=== PATIENT | female | born 1935 | race Caucasian/White ===

== ENCOUNTER → 2017-05-07 | Outpatient (CLI) | payer OTHER, MEDICARE ==
[~2017-05-07] MED LIST: ACIDOPHILUS1 EAC3 PO; ALBUTEROL2.5 MG/0.5 INH; AUGMENTIN 875875 MG PO; CALCIUM 600 +1 EAC1 PO; FOLIC ACID1 MG PO; LEVAQUIN 500 M500 M2 PO; METHOTREXATE 22.5 MG; PREDNISONE 10 M10 MG PO; PREDNISONE 5 MG5 M1 PO; PRILOSEC20 MG PO; PROTONIX40 M1 PO; SIMVASTATIN40 MG PO; TRAMADOL 50 MG50 MG PO; ULTRAM 50MG TAB50 MG PO
== END ==
LOC: RAD 08:49
DX: J84.9 Interstitial pulmonary disease, unspecified (principal); J44.9 Chronic obstructive pulmonary disease, unspecified; R06.00 Dyspnea, unspecified

== ENCOUNTER 2017-09-25 12:43 | Emergency (ER) | payer OTHER, MEDICARE ==
[~2017-09-25] VITALS: Ht 154.9 cm; Wt 48.1 kg
[2017-09-25] MEDS ORDERED: NEURONTIN600 MG PO (13:19)
[2017-09-25] MEDS ORDERED: OXYCONTIN10 M1 PO (13:20)
[2017-09-25] MEDS ORDERED: IRON325 PO (13:20)
== END 2017-09-25 14:02 | disposition home or self-care (01) ==
LOC: ER 12:43
DX: H11.31 Conjunctival hemorrhage, right eye (principal); J44.9 Chronic obstructive pulmonary disease, unspecified; M19.90 Unspecified osteoarthritis, unspecified site; F10.99 Alcohol use, unspecified with unspecified alcohol-induced disorder; Z88.2 Allergy status to sulfonamides; Z91.013 Allergy to seafood

== ENCOUNTER 2017-11-25 12:24 | Inpatient (IN) | payer OTHER, MEDICARE ==
[~2017-11-25] VITALS: Ht 160 cm; Wt 59.0 kg
--- NOTE | ~2017-11-25 | EKG ---
[place] [address] [facility] [place] [address] ELECTROCARDIOGRAM REPORT Name: TORREY GARAY Room #: 404-P ADM IN M.R.#: [id number] Admission: 11/25/17 Attend Phys: Adrián Mason MD Discharge: Date of : 35 Report #: [id number] THIS REPORT FOR: //name// [facility] ED Test Date: 2017-11-25 Test Time: 12:36:24 Pat Name: TORREY GARAY Department: Room: [facility] Gender: F Sequencing Machine Operator: HAFSA : 1935 Requested By: Bettina Hart Order Number: [id number] MD: Freeman Jason Measurements Intervals Wallace Rate: 116 P: -1 MD: 137 QRS: -73 QRSD: 92 T: 81 QT: 332 QTc: 462 Interpretive Statements Sinus tachycardia Multiple premature complexes, supraven Left anterior fascicular block Compared to ECG 01/03/2016 19:28:51 Ventricular premature complex(es) no longer present Electronically Signed On 11-25-2017 18:28:57 LOCK TECHNICIAN by Freeman Jason [email or web address] <ELECTRONICALLY SIGNED> By: Freeman Jason MD, [facility] 11/25/17 1828 1236 1236 Freeman Jason MD, [facility] /EPI
--- NOTE | ~2017-11-25 | H ---
[facility] [place] [address] HISTORY AND PHYSICAL Name: TORREY GARAY Room #: 404-P ADM IN M.R.#: [id number] Admission: 11/25/17 Attend Phys: Adrián Mason MD Discharge: Date of : 35 Report #: [id number] THIS REPORT FOR: //name// CC: Hebert Mason DATE OF SERVICE: 11/25/2017 CHIEF COMPLAINT: Weakness and confusion. HISTORY OF PRESENT ILLNESS: The patient is an 82-year-old female who was sent to the emergency room from her assisted living facility for reports of confusion and hypoxia. Apparently at her facility each morning, she is to hit a signal button to the central office to let them know that she is doing okay. She did not do that this morning and the staff went to check on her and found her confused and hypoxic without her oxygen in her apartment. She said she could not remember if she had taken her medicines or had breakfast. At that point, the staff called EMS and she was brought to the emergency room. The main issues were that of hypoxia that resolved with the placement of her home oxygen and leukocytosis. She really cannot provide any other specific reports or history beyond that. PAST MEDICAL HISTORY: COPD, chronic O2 and steroid dependent; rheumatoid arthritis; gout; interstitial lung disease. She has had a history of vertebral compression fractures in 2016. PAST SURGICAL HISTORY: Tonsillectomy, vertebroplasty. FAMILY HISTORY: Noncontributory. SOCIAL HISTORY: A 29-ifih-lbfv smoking, but none currently. No alcohol use. ALLERGIES: SULFA. MEDICATIONS: Multivitamin, Zocor 40 mg, prednisone 10 mg, iron, apparently supplemental oxygen at 4 liters nasal cannula, gabapentin 600 mg t.i.d., oxycodone 10 mg q. 6 hours p.r.n. pain. REVIEW OF SYSTEMS: She denies headache, fever, chills, shortness of breath, productive cough, nausea, vomiting or diarrhea. OBJECTIVE: VITAL SIGNS: Temperature 36.6, pulse 114, respirations 20, blood pressure 154/83, O2 sat on nasal cannula oxygen. GENERAL: She is awake and alert, resting in bed in no distress. HEAD AND NECK: Unremarkable. She has dry mucous membranes. [address] [address] HISTORY AND PHYSICAL Name: TORREY GARAY Room #: [facility] IN M.R.#: [id number] Admission: 11/25/17 Attend Phys: Adrián Mason MD Discharge: Date of : 35 Report #: [id number] LUNGS: Distant, but clear. No wheezing. HEART: Tachycardic, regular rhythm, no murmur. ABDOMEN: Soft, normoactive bowel sounds. EXTREMITIES: No cyanosis, clubbing or edema. NEUROLOGIC: She moves all extremities, global strength about 3/5 throughout. LABORATORY DATA: Influenza is negative. Chest x-ray did not show an infiltrate. Blood, sputum and urine cultures are pending. BUN was 25. White blood cell count 19, no bands, about 80% segs. ASSESSMENT: 1. Leukocytosis. 2. Chronic obstructive pulmonary disease exacerbation. 3. Prerenal azotemia with mild dehydration. 4. Rheumatoid arthritis. 5. Chronic pain syndrome with use of oxycodone. PLAN: Cultures have been obtained in the ER and empiric antibiotics have been ordered. I will resume her usual home medications, Lovenox DVT prophylaxis and nebulized treatments. Await further studies. <ELECTRONICALLY SIGNED> By: Adrián Mason MD 11/26/17 1017 1538 1736 Adirán Mason MD /nt
[~2017-11-25 12:24] MED LIST changes: +IRON325 PO; +NEURONTIN600 MG PO; +OXYCONTIN10 M1 PO
[2017-11-25 12:26] VITALS: BP 155/93
[2017-11-25 12:59] LABS: HEMATOCRIT 39.7 % (37.0-47.0); HEMOGLOBIN 12.7 gm/dL (12.0-15.0); MCH 30.2 pg (26.0-34.0); MCHC 31.9 g/dL (28.0-37.0); MCV 94.8 fL (80.0-100.0); PLATELET COUNT 388 thou/uL (150-400); RBC 4.18 mil/uL (4.20-5.00); RDW 14.7 % (10.5-14.5); WBC 19.3 thou/uL (4.0-11.0)
[2017-11-25 13:08] LABS: CALCIUM 9.1 mg/dL (8.5-10.1); CREATININE 0.8 mg/dL (0.6-1.0); POTASSIUM 3.5 mmol/L (3.5-5.1)
[2017-11-25 13:12] LABS: BE(vivo) 5.8 mmol/L (-2 to +3); HCO3 27.2 mmol/L (22.0-26.0); PCO2 29.5 mmHg (35.0-45.0); PO2 60.8 mmHg (80.0-100.0); pH 7.583 (7.360-7.450); sO2 94.7 % (92.0-98.0)
[2017-11-25 13:32] LABS: ABSOLUTE NEUTROPHILS 15.8 thou/uL (1.4-8.2); PLATELET ESTIMATE NORMAL
[2017-11-25 13:33] LABS: POLYCHROMASIA SLIGHT
[2017-11-25 13:42] LABS: URINE BILIRUBIN 2+ (Negative); URINE BLOOD 1+ (Negative); URINE CLARITY CLEAR; URINE COLOR YELLOW; URINE GLUCOSE-RANDOM* NEGATIVE (Negative); URINE KETONES 2+ (Negative); URINE LEUKOCYTES NEGATIVE (Negative); URINE NITRITE NEGATIVE (Negative); URINE PROTEIN (DIPSTICK) 3+ (Negative); URINE SPECIFIC GRAVITY >= 1.030 (1.005-1.035)
[2017-11-25 13:45] LABS: ICTOTEST (BILI CONFIRMATORY) Negative (Negative)
[2017-11-25 13:51] LABS: AMORPHOUS URATES Many /LPF (None Seen); BACTERIA 1-9 Few /HPF (None Seen); CASTS None Seen /LPF (None Seen); SQUAMOUS 0-3 Few /LPF (0-3); URINE RBC 3-10 Few /HPF (0-2); URINE WBC 0-5 Rare /HPF (0-5)
[2017-11-25 14:35] VITALS: BP 154/83
[2017-11-25 14:39] VITALS: BP 154/83
[2017-11-25 16:32] VITALS: BP 168/79
[2017-11-25 19:38] VITALS: BP 142/74
[2017-11-26] VITALS: BP 147/73
[2017-11-26 03:45] VITALS: BP 144/68
[2017-11-26 05:47] LABS: HEMATOCRIT 33.2 % (37.0-47.0); HEMOGLOBIN 10.9 gm/dL (12.0-15.0); MCH 30.1 pg (26.0-34.0); MCHC 32.8 g/dL (28.0-37.0); MCV 91.7 fL (80.0-100.0); RBC 3.62 mil/uL (4.20-5.00); RDW 14.4 % (10.5-14.5); WBC 17.1 thou/uL (4.0-11.0)
[2017-11-26 06:14] LABS: CREATININE 0.5 mg/dL (0.6-1.0)
[2017-11-26 06:18] LABS: POTASSIUM 2.6 mmol/L (3.5-5.1)
[2017-11-26 08:43] VITALS: BP 143/84
[2017-11-26 16:34] VITALS: BP 108/69
[2017-11-26 20:00] VITALS: BP 96/60
[2017-11-27 03:52] LABS: HEMATOCRIT 32.1 % (37.0-47.0); HEMOGLOBIN 10.4 gm/dL (12.0-15.0); MCHC 32.5 g/dL (28.0-37.0); MCV 92.1 fL (80.0-100.0); RBC 3.48 mil/uL (4.20-5.00); RDW 14.4 % (10.5-14.5); WBC 14.5 thou/uL (4.0-11.0)
[2017-11-27 04:00] VITALS: BP 100/61
[2017-11-27 04:08] LABS: CALCIUM 7.6 mg/dL (8.5-10.1); CREATININE 0.6 mg/dL (0.6-1.0); POTASSIUM 3.8 mmol/L (3.5-5.1)
[2017-11-27 07:28] VITALS: BP 96/50
[2017-11-27 16:03] VITALS: BP 107/66
[2017-11-27 20:17] VITALS: BP 115/60
[2017-11-28 04:05] VITALS: BP 120/69
[2017-11-28 04:45] LABS: HEMATOCRIT 32.5 % (37.0-47.0); HEMOGLOBIN 10.6 gm/dL (12.0-15.0); MCH 29.8 pg (26.0-34.0); MCHC 32.5 g/dL (28.0-37.0); MCV 91.6 fL (80.0-100.0); RBC 3.55 mil/uL (4.20-5.00); RDW 14.6 % (10.5-14.5); WBC 16.4 thou/uL (4.0-11.0)
[2017-11-28 08:37] VITALS: BP 111/56
[2017-11-28 16:21] VITALS: BP 112/68
[2017-11-28 19:48] VITALS: BP 117/61
[2017-11-29 04:05] VITALS: BP 116/65
[2017-11-29 08:27] VITALS: BP 112/54
[2017-11-29 15:47] VITALS: BP 105/59
[2017-11-29 19:34] VITALS: BP 101/57
[2017-11-30 04:12] VITALS: BP 114/62
[2017-11-30 09:41] VITALS: BP 97/53
[2017-11-30] MEDS ORDERED: LEVAQUIN 500 M500 M1 PO ×2 (11:49)
[2017-11-30] MEDS ORDERED: PREDNISONE 10 M10 MG PO ×2 (11:50)
[2017-11-30] MEDS ORDERED: OXYCODONE HCL 55 MG PO ×2 (11:54)
[2017-11-30 12:09] VITALS: BP 97/53
[2017-11-30 15:37] VITALS: BP 118/54
== END 2017-11-30 18:24 | disposition home or self-care (01) | DRG 871 ==
LOC: ER 12:24 → 4N 14:11 → EROBS 14:11 → 4N 14:32
PROVIDERS: Emergency Medicine; Internal Medicine Geriatric Medicine
DX: A41.9 Sepsis, unspecified organism (principal); J18.9 Pneumonia, unspecified organism; G93.41 Metabolic encephalopathy; J44.1 Chronic obstructive pulmonary disease with (acute) exacerbation; J44.0 Chronic obstructive pulmonary disease with (acute) lower respiratory infection; M06.9 Rheumatoid arthritis, unspecified; G89.4 Chronic pain syndrome; M10.9 Gout, unspecified; Z87.311 Personal history of (healed) other pathological fracture; Z90.49 Acquired absence of other specified parts of digestive tract; Z79.899 Other long term (current) drug therapy; Z88.2 Allergy status to sulfonamides; Z91.013 Allergy to seafood
CPT/HCPCS: 10790

== ENCOUNTER 2017-12-05 08:31 | Inpatient (IN) | payer OTHER, MEDICARE ==
[~2017-12-05] VITALS: Ht 152.4 cm; Wt 47.6 kg
--- NOTE | ~2017-12-05 | P ---
[facility] [place] [address] PROCEDURE REPORT Name: TORREY GARAY Room #: 424-P ADM IN M.R.#: [id number] Admission: 12/05/17 Attend Phys: Adrián Mason MD Discharge: Date of : 35 Report #: [id number] THIS REPORT FOR: //name// CC: Reinaldo Mason MD DATE OF SERVICE: 12/09/2017 PROCEDURE: EGD with biopsies. The patient of Dr. Adrián Mason. Indication for the EGD was to evaluate her weight loss and anemia. Informed consent for this procedure was obtained prior to the administration of any medication. The risks of the procedure which include bleeding, perforation, infection, complications of sedation and the possibility I could miss something have been explained to the patient and she has indicated her consent by signing. DESCRIPTION OF PROCEDURE: Propofol 350 mg and ketamine 50 mg was slowly titrated before and during this procedure and the colonoscopy that followed it. The [employer] upper videoscope was introduced through the upper esophageal sphincter and advanced under direct visualization to the descending duodenum. Findings are noted on withdrawal of the scope. The duodenal mucosa appears normal throughout its entirety. Pylorus, normal mucosa. Antrum, normal mucosa. There is some coffee-ground material down the antrum of the stomach. I am not certain of the source because I could not identify one. Body, normal mucosa. Cardia and fundus, normal mucosa. Retroflexed view did not reveal any abnormalities. The scope was withdrawn into the esophagus. The esophageal mucosa appears normal throughout its entirety and the Z-line is appropriately located at the top the gastric folds and appears normal. The scope was advanced then into the stomach again. Biopsies were obtained x 2 for histopathology to exclude H. pylori infection primarily, but any other abnormalities that are noted would be appreciated. The scope was withdrawn. The patient was turned for colonoscopy. IMPRESSION: 1. Normal esophagogastroduodenoscopy to descending duodenum. Biopsies obtained for Helicobacter pylori evaluation. 2. A few coffee grounds were noted in the stomach. Etiology is uncertain. [facility] [address] [place] [address] PROCEDURE REPORT Name: GARAYTORREY Room #: 424-P [facility] IN M.R.#: [id number] Admission: 12/05/17 Attend Phys: Adrián Mason MD Discharge: Date of : 35 Report #: [id number] Thank you very much once again for allowing me to participate in her care. We will await the biopsy results and proceed with colonoscopy at this time. <ELECTRONICALLY SIGNED> By: Lucia Carpenter DO 12/10/17 1117 1631 [id number] Lucia Carpenter DO /nt
--- NOTE | ~2017-12-05 | S ---
[facility] [address] [place] [address] SURGICAL PATH RPT PROCEDURE Name: JEWELS WISE Aixa Room #: 424-P ADM IN M.R.#: [id number] Admission: 12/05/17 Date of : 35 Discharge: Report #: [id number] Path Case #: [id number] PATHOLOGY REPORT COLLECTION DATE: 12/09/2017 RECEIVED DATE: 12/09/2017 SUBMITTING PHYS: Dr. Lucia Carpenter OTHER PHYS: Dr. Adrián Gore ADDENDUM REPORT (Order Date: 12/11/2017 09:49) ADDENDUM COMMENT: A properly controlled immunohistochemical stain was performed. H. pylori (block A1) - Negative for organisms The final diagnosis remains unchanged. (CLW:cj; 12/11/2017) Professional services performed by [facility] at [facility] [address] [place] [address] Technical services performed by [facility] at [address] [place] [address], [address] [place] [address]. ELECTRONICALLY SIGNED BY: Humaira Yen M.D. DATE/TIME:12/11/2017 09:52 SPECIMEN(S) RECEIVED: A.Duodenal bulb B.Proximal descending polyp C.Ascending collitis * * * * * * * * * * * * FINAL DIAGNOSIS: A. Tissue submitted as, "duodenal bulb", biopsy: - Gastric mucosa with mild reactive changes and mild chronic inflammation; no small bowel mucosa present. (See comment). B. "Proximal descending polyp", biopsy: - Tubular adenoma; no high grade dysplasia. C. "Ascending colitis", biopsy: - Colonic mucosa with mild reactive / hyperplastic changes and focal active colitis; no dysplasia is seen. (See comment). COMMENT: Within specimen A, the tissue submitted is entirely gastric mucosa. Clinical and endoscopic correlation is required to exclude the [facility] [address] [place] [address] SURGICAL PATH RPT PROCEDURE Name: DAISHA WISELEOBARDO Kruse Room #: 424-P ADM IN ..#: [id number] Admission: 12/05/17 Date of : 35 Discharge: Report #: [id number] Path Case #: [id number] possibility of gastric metaplasia of the duodenal bulb. An H. pylori stain is pending and will be reported as an addendum. Within specimen C, focal active colitis can be seen in resolving infectious-type colitis, incidentally with bowel preparation and quiescent chronic idiopathic inflammatory bowel disease. No increased chronic inflammation or chronic architectural changes are identified. Again, clinical and endoscopic correlation is required. (CLW:art; 12/10/2017) PATHOLOGIST: Humaira Yen M.D. REPORT ELECTRONICALLY SIGNED BY: Humaira Yen M.D. DATE/TIME: 12/10/2017 15:50 * * * * * * * * * * * * GROSS PATHOLOGY: A. Received in formalin labeled "Jewels Wise, BX duodenal bulb," is a segment of carrera soft tissue measuring 0.5 cm in maximum dimension. The specimen is submitted entirely in cassette A1. B. Received in formalin labeled "Jewels Wise, polyp at proximal descending colon," is a segment of carrera soft tissue measuring 0.4 cm in maximum dimension. The specimen is submitted entirely in cassette B1. C. Received in formalin labeled "Jewels Wise, ascending colitis," are 2 segments of carrera soft tissue measuring 0.6 x 0.2 x 0.2 cm in aggregate dimensions and measuring 0.3 cm each in maximum dimension. The specimen is submitted entirely in cassette C1. (TSD; 12/09/2017) CLINICAL HISTORY: Pre-OP DX: Weight loss, colitis Post-OP DX: Gastritis, colon polyp, diverticulosis, colitis INITIAL CPT CODE(S): A; 23888, 48301 B; 07411 C; 21159 Professional services performed by [facility] at [address], [place] [address] Technical services performed by [facility] at [address] [place] [address], [facility] [address] [address]. [facility] [address] [address] SURGICAL PATH RPT PROCEDURE Name: JEWELS WISE Aixa Room #: 424-P [facility] IN M.R.#: [id number] Admission: 12/05/17 Date of : 35 Discharge: Report #: [id number] Path Case #: [id number] [address] [place] [address] PHONE: [phone] DIRECTOR: Rd Silveira M.D. * * * END OF REPORT * * *
--- NOTE | ~2017-12-05 | P ---
[facility] [place] [address] PROCEDURE REPORT Name: TORREY GARAY Aixa Room #: 424-P [facility] IN M.R.#: [id number] Admission: 12/05/17 Attend Phys: Adrián Mason MD Discharge: Date of : 35 Report #: [id number] THIS REPORT FOR: //name// CC: Reinaldo Mason DATE OF SERVICE: 12/09/2017 PROCEDURE: Colonoscopy with biopsy. INDICATIONS FOR PROCEDURE: Evaluate right-sided colitis, weight loss and anemia. Informed consent for this procedure was obtained prior to the administration of any medication. The risks of the procedure which include bleeding, perforation, infection, complications of sedation and the possibility I could miss something have been explained to the patient and she has indicated her consent by signing. DESCRIPTION OF PROCEDURE: Propofol 350 mg and ketamine 50 mg were slowly titrated before and during this procedure and the EGD that preceded it. Digital rectal exam did not reveal any abnormalities. Then, the Alegríainon colonoscope was introduced through the anal sphincter and advanced under direct visualization with great difficulty at times because of the loopy colon to the patient's terminal ileum. Findings were noted on withdrawal of the scope. The terminal ileal mucosa that was visualized appeared normal. Cecum, normal mucosa. Ascending colon, normal mucosa. Biopsies were obtained randomly from the ascending colon because CT scan suggested that this was an area of active colitis with thickened whitlock. Hepatic flexure, normal mucosa. Transverse colon, normal mucosa. Splenic flexure, normal mucosa. Proximal descending colon, there was a 4-mm sessile polyp removed in one piece with the regular biopsy forceps and sent to pathology lab. Good hemostasis was noted after that polypectomy. The remaining descending colonic mucosa appears normal, except for a few uncomplicated diverticula. Sigmoid colon, scattered uncomplicated diverticula are noted. Rectum, normal mucosa. Retroflexed view did not reveal any abnormalities. The scope was withdrawn. The patient went to the recovery room in stable condition. She tolerated the procedure well. IMPRESSION: 1. Uncomplicated left-sided diverticulosis. 2. A 4-mm polyp removed from the proximal descending colon, as above. 3. Random biopsies of the right colon because of colitis seen on CT scan. RECOMMENDATIONS: To await the biopsy results. We will start her on her regular diet and her previous medications. We did collect stools for culture and sensitivity, ova and parasites, C. difficile and WBCs during this procedure. [address] [address] PROCEDURE REPORT Name: GARAYTORREY Room #: 424-P [facility] IN .#: [id number] Admission: 12/05/17 Attend Phys: Adrián Mason MD Discharge: Date of : 35 Report #: [id number] Thank you very much once again for allowing me to participate in her care, Dr. Gore and Dr. Mason. <ELECTRONICALLY SIGNED> By: Lucia Carpenter DO 12/10/17 1117 1631 2313 Lucia Carpenter DO /nt
--- NOTE | ~2017-12-05 | EKG ---
[place] [address] [facility] [employer] [place] [address] ELECTROCARDIOGRAM REPORT Name: TORREY GARAY Room #: 424-P [facility] IN M.R.#: [id number] Admission: 12/05/17 Attend Phys: Adrián Mason MD Discharge: Date of : 35 Report #: [id number] THIS REPORT FOR: //name// [facility] ED Test Date: 2017-12-05 Test Time: 10:19:36 Pat Name: TORREY GARAY Department: Room: [facility] Gender: F Staff Nurse Anesthetist: JACQUI : 1935 Requested By: Paige Wooten Order Number: [id number] MD: Freeman Jason Measurements Intervals [place] Rate: 91 P: 5 IL: 148 QRS: -61 QRSD: 92 T: 16 QT: 366 QTc: 451 Interpretive Statements Sinus rhythm ventricular premature complexes Left atrial enlargement Left anterior fascicular block Poor R wave progression Compared to ECG 11/25/2017 12:36:24 Ventricular premature complex(es) now present Electronically Signed On 12-07-2017 7:27:59 WOOD TILE INSTALLER by Freeman Jason [email or web address] <ELECTRONICALLY SIGNED> By: Freeman Jason MD, FACC 12/07/17 0727 1019 1019 Freeman Jason MD, [facility] /EPI
--- NOTE | ~2017-12-05 | H ---
[facility] [place] [address] HISTORY AND PHYSICAL Name: TORREY GARAY Aixa Room #: 424-P ADM IN M.R.#: [id number] Admission: 12/05/17 Attend Phys: Adrián Mason MD Discharge: Date of : 35 Report #: [id number] THIS REPORT FOR: //name// CC: Hebert Mason DATE OF SERVICE: 12/05/2017 CHIEF COMPLAINT: Weakness. HISTORY OF PRESENT ILLNESS: The patient is an 82-year-old female with a history of COPD and rheumatoid arthritis, is readmitted to the hospital through the Emergency Room with weakness. She was hospitalized about a week ago with general symptoms, very similar, but at that time had an unexplained leukocytosis. White count was 19,000. Chest x-ray, blood and urine cultures were unremarkable. She was treated with empiric antibiotics and then discharged home. Recommendations at that time by myself were for her to transfer to intermediate for rehabilitation, which she declined. However, family brought her back to the ER yesterday with general decline in her overall function, just global weakness, tending to sleep most of the day, not getting out of bed or performing regular self cares. They were concerned and brought her back to the Emergency Room. She really has no other specific complaints. Her about 3 months ago and family noted she seems depressed since then. PAST MEDICAL HISTORY: Rheumatoid arthritis, COPD, O2 and steroid dependent. She has had a thoracic vertebral compression fractures. PAST SURGICAL HISTORY: Noncontributory. FAMILY HISTORY: Unknown. SOCIAL HISTORY: She is recently . She is living alone. She has a supportive daughter in town. No chronic alcohol or tobacco use currently, but a prior 01-yuvd-yztu history of smoking. ALLERGIES: SULFA. MEDICATIONS: Oxycodone, gabapentin, prednisone 10 mg, leflunomide. REVIEW OF SYSTEMS: She complains of neck pain and stiffness. No headache, chest pain, shortness of breath, abdominal pain, nausea, vomiting, diarrhea, constipation, dysuria, syncope. OBJECTIVE: VITAL SIGNS: Temperature 36.7, pulse 105, respirations 18, blood pressure 139/71. [facility] [address] [place] [address] HISTORY AND PHYSICAL Name: TORREY GARAY Room #: 424-P [facility] IN [facility]#: [id number] Admission: 12/05/17 Attend Phys: Adrián Mason MD Discharge: Date of : 35 Report #: [id number] GENERAL: She is awake and alert, in no distress. HEAD AND NECK: Unremarkable. She has some stiffness and pain on the right side of her neck. LUNGS: Distant but clear. No wheezing. HEART: Regular, no murmur. ABDOMEN: Soft, normoactive bowel sounds. EXTREMITIES: No cyanosis, clubbing or edema. She has some joint deformities in the metacarpophalangeal bilateral. NEUROLOGIC: She is alert and oriented. She knows place, remembered my name. Global strength about 3/5 throughout. LABORATORY DATA: She had a urinalysis with white blood cells and few bacteria. White count is 13, with a mild left shift. Potassium was 3.2. Troponin negative. TSH normal. Urine culture is pending. ASSESSMENT: 1. Persistent leukocytosis. 2. Rheumatoid arthritis. 3. Chronic obstructive pulmonary disease, O2 and steroid dependent. 4. Senile debility. 5. Depression after the loss of her . PLAN: We will investigate the leukocytosis again, but as of last admission, there was no definitive source, and her count has slowly dropped really with minimal treatment. Ultimately, the plan will be for her to admit to intermediate for rehabilitation and ADL care and see how she does with consideration to what the long-term options for her. She is complaining of pain in the neck and given the rheumatoid arthritis and history of vertebral compression fractures, a CT will be ordered. <ELECTRONICALLY SIGNED> By: Adrián Mason MD 12/07/17 1255 0854 0925 Adrián Mason MD /nt
[~2017-12-05 08:31] MED LIST changes: +LEVAQUIN 500 M500 M1 PO; +OXYCODONE HCL 55 MG PO
[2017-12-05 08:32] VITALS: BP 126/44
[2017-12-05 09:06] LABS: ANION GAP 4 mmol/L (7-16); BUN 12 mg/dL (7-18); CHLORIDE 99 mmol/L (98-107); CO2 39 mmol/L (21-32); CREATININE 0.7 mg/dL (0.6-1.0); GLUCOSE 118 mg/dL (74-106); POTASSIUM 3.2 mmol/L (3.5-5.1); SODIUM 142 mmol/L (136-145)
[2017-12-05 09:10] LABS: ABSOLUTE NEUTROPHILS 11.5 thou/uL (1.4-8.2); BASOPHILS 0.9 % (0.0-2.0); EOSINOPHILS 1.3 % (0.0-3.0); HEMATOCRIT 31.9 % (37.0-47.0); HEMOGLOBIN 10.4 gm/dL (12.0-15.0); LYMPHOCYTES 6.2 % (24.0-44.0); MCH 29.6 pg (26.0-34.0); MCHC 32.6 g/dL (28.0-37.0); MCV 90.9 fL (80.0-100.0); MONOCYTES 6.7 % (1.0-8.0); PLATELET COUNT 283 thou/uL (150-400); POLYS 84.9 % (36.0-66.0); RBC 3.51 mil/uL (4.20-5.00); RDW 14.7 % (10.5-14.5); WBC 13.6 thou/uL (4.0-11.0)
[2017-12-05 09:15] LABS: TROPONIN-I < 0.04 ng/mL (<0.06)
[2017-12-05 10:53] LABS: URINE BILIRUBIN NEGATIVE (Negative); URINE BLOOD NEGATIVE (Negative); URINE CLARITY CLEAR; URINE COLOR YELLOW; URINE GLUCOSE-RANDOM* NEGATIVE (Negative); URINE KETONES NEGATIVE (Negative); URINE LEUKOCYTES-REFLEX NEGATIVE (Negative); URINE NITRITE-REFLEX NEGATIVE (Negative); URINE PROTEIN (DIPSTICK) 1+ (Negative); URINE SPECIFIC GRAVITY >= 1.030 (1.005-1.035); URINE UROBILINOGEN 0.2 E.U./dl (0.2-1.0)
[2017-12-05 11:11] LABS: CASTS None Seen /LPF (None Seen); CRYSTALS None Seen /LPF (None Seen); SQUAMOUS 4-10 Moderate /LPF (0-3)
[2017-12-05 11:12] LABS: BACTERIA-REFLEX 1-9 Few /HPF (None Seen); URINE RBC 0-2 Rare /HPF (0-2); URINE WBC-REFLEX 6-15 Few /HPF (0-5)
[2017-12-05 12:16] VITALS: BP 100/70
[2017-12-05 12:39] VITALS: BP 94/58
[2017-12-05 19:07] VITALS: BP 111/64
[2017-12-06 03:50] VITALS: BP 146/76
[2017-12-06 07:40] VITALS: BP 139/71
[2017-12-06 15:16] VITALS: BP 95/60
[2017-12-06 19:15] VITALS: BP 132/85
[2017-12-06 20:25] LABS: ALBUMIN 1.9 g/dL (3.4-5.0); DIRECT BILIRUBIN 0.1 mg/dL (<0.1-0.3); TOTAL BILIRUBIN 0.3 mg/dL (<0.1-1.0); TOTAL PROTEIN 5.9 g/dL (6.4-8.2)
[2017-12-07 03:55] VITALS: BP 148/81
[2017-12-07 08:05] VITALS: BP 106/62
[2017-12-07 14:21] LABS: HEMATOCRIT 34.1 % (37.0-47.0); HEMOGLOBIN 10.9 gm/dL (12.0-15.0); MCH 29.2 pg (26.0-34.0); MCV 91.2 fL (80.0-100.0); RBC 3.74 mil/uL (4.20-5.00); RDW 15.4 % (10.5-14.5); WBC 17.5 thou/uL (4.0-11.0)
[2017-12-07 14:29] LABS: CALCIUM 8.8 mg/dL (8.5-10.1); CREATININE 0.8 mg/dL (0.6-1.0); POTASSIUM 4.1 mmol/L (3.5-5.1)
[2017-12-07 15:57] VITALS: BP 108/63
[2017-12-07 19:40] VITALS: BP 107/63
[2017-12-08 03:24] VITALS: BP 127/63
[2017-12-08 08:55] VITALS: BP 118/70
[2017-12-08 15:37] VITALS: BP 117/70
[2017-12-08 19:59] VITALS: BP 142/73
[2017-12-09 04:14] VITALS: BP 152/86
[2017-12-09 09:06] VITALS: BP 154/89
[2017-12-09 17:23] VITALS: BP 140/76
[2017-12-09 19:09] VITALS: BP 153/80
[2017-12-10 04:00] VITALS: BP 121/64
[2017-12-10 04:23] LABS: CALCIUM 8.7 mg/dL (8.5-10.1); CREATININE 0.5 mg/dL (0.6-1.0)
[2017-12-10 05:29] LABS: HEMATOCRIT 35.9 % (37.0-47.0); HEMOGLOBIN 11.7 gm/dL (12.0-15.0); MCH 29.4 pg (26.0-34.0); MCHC 32.7 g/dL (28.0-37.0); RBC 3.99 mil/uL (4.20-5.00); RDW 15.4 % (10.5-14.5); WBC 14.7 thou/uL (4.0-11.0)
[2017-12-10 07:32] VITALS: BP 150/81
[2017-12-10 16:05] VITALS: BP 139/72
[2017-12-10 20:00] VITALS: BP 140/82
[2017-12-11 04:25] VITALS: BP 132/71
[2017-12-11] MEDS ORDERED: ACETAMINOPHEN325 M1 PO ×2 (10:01)
[2017-12-11] MEDS ORDERED: ZOLOFT100 MG PO (10:01)
[2017-12-11] MEDS ORDERED: OXYCODONE HCL 55 MG PO ×2 (10:01)
[2017-12-11] MEDS ORDERED: MOBIC7.5 M1 PO ×2 (10:01)
[2017-12-11] MEDS ORDERED: DUONEB 2.5-0.5 M3 ML INH ×2 (10:01)
[2017-12-11] MEDS ORDERED: FLAGYL500 MG PO ×2 (16:13)
[2017-12-11] MEDS ORDERED: LEVAQUIN 500 M500 M1 PO ×2 (16:13)
[2017-12-11] MEDS ORDERED: ARAVA10 MG PO (16:13)
[2017-12-11 20:00] VITALS: BP 130/66
[2017-12-11 20:40] VITALS: BP 130/66
[2017-12-12 03:45] VITALS: BP 127/69
[2017-12-12 08:00] VITALS: BP 128/76
[2017-12-12] MEDS ORDERED: REMERON15 MG PO ×2 (08:45)
[2017-12-13 14:11] LABS: HISTOPLASMA MYCELIAL-ID Negative (Negative)
[2017-12-16 00:11] LABS: HISTOPLASMA MYCELIAL-CF Negative (Neg:<1:2)
[2017-12-17 07:15] LABS: T-SPOT.TB Negative
== END 2017-12-12 10:00 | DRG 377 ==
LOC: ER 08:31 → EROBS 11:54 → 4E 11:54
PROVIDERS: Emergency Medicine; Internal Medicine Geriatric Medicine; Specialist
PROC: 0DB98ZX Excision of Duodenum, Via Natural or Artificial Opening Endoscopic, Diagnostic (ICD-10-PCS; principal; 2017-12-05)
PROC: 0DBM8ZX Excision of Descending Colon, Via Natural or Artificial Opening Endoscopic, Diagnostic (ICD-10-PCS; principal; 2017-12-05)
PROC: 0DBK8ZX Excision of Ascending Colon, Via Natural or Artificial Opening Endoscopic, Diagnostic (ICD-10-PCS; principal; 2017-12-05)
DX: K57.31 Diverticulosis of large intestine without perforation or abscess with bleeding (principal); E43 Unspecified severe protein-calorie malnutrition; N39.0 Urinary tract infection, site not specified; K52.9 Noninfective gastroenteritis and colitis, unspecified; J84.10 Pulmonary fibrosis, unspecified; M06.9 Rheumatoid arthritis, unspecified; R53.81 Other malaise; R63.4 Abnormal weight loss; J44.9 Chronic obstructive pulmonary disease, unspecified; F32.9 Major depressive disorder, single episode, unspecified; G89.29 Other chronic pain; R40.0 Somnolence; D72.829 Elevated white blood cell count, unspecified; Z88.2 Allergy status to sulfonamides; Z91.013 Allergy to seafood; Z87.891 Personal history of nicotine dependence; Z68.20 Body mass index [BMI] 20.0-20.9, adult; Z99.81 Dependence on supplemental oxygen; Z79.51 Long term (current) use of inhaled steroids; Z79.899 Other long term (current) drug therapy
CPT/HCPCS: 10084; 62110; 62900

== ENCOUNTER 2017-12-18 14:25 | Inpatient (IN) | payer OTHER, MEDICARE ==
[~2017-12-18] VITALS: Ht 149.9 cm; Wt 40.4 kg
--- NOTE | ~2017-12-18 | EKG ---
[place] [address] [facility] [place] [address] ELECTROCARDIOGRAM REPORT Name: TORREY GARAY Room #: 419-P ADM IN M.R.#: [id number] Admission: 12/18/17 Attend Phys: Edna Xavier MD Discharge: Date of : 35 Report #: [id number] THIS REPORT FOR: //name// [facility] ED Test Date: 2017-12-18 Test Time: 14:41:50 Pat Name: TORREY GARAY Department: Room: [facility] Gender: F Gerontological Nurse Practitioner: ZO : 1935 Requested By: Madyson Church Order Number: [id number] MD: Rene Haynes Measurements Intervals [place] Rate: 116 P: 26 CA: 134 QRS: -71 QRSD: 88 T: 115 QT: 323 QTc: 449 Interpretive Statements Sinus arrhythmia Paired ventricular premature complexes Left atrial enlargement Left anterior fascicular block LVH with secondary repolarization abnormality Compared to ECG 12/05/2017 10:19:36 Left ventricular hypertrophy now present Electronically Signed On 12-19-2017 12:21:48 WHARF TALLY CLERK by Rene Haynes [email or web address] <ELECTRONICALLY SIGNED> By: Rene Haynes MD 12/19/17 1221 1441 1441 Rene Haynes MD /EPI
--- NOTE | ~2017-12-18 | H ---
[facility] [place] [address] HISTORY AND PHYSICAL Name: TORREY GARAY Aixa Room #: 419-P [facility] IN .R.#: [id number] Admission: 12/18/17 Attend Phys: Edna Freeman MD Discharge: Date of : 35 Report #: [id number] THIS REPORT FOR: //name// CC: Hebert Bao Edna Freeman DATE OF SERVICE: 12/19/2017 ATTENDING PHYSICIAN: Edna Freeman MD. CHIEF COMPLAINT: Left hip pain post fall. HISTORY OF PRESENT ILLNESS: The patient is an 82-year-old lady who presented to the Emergency Room after a fall in the restroom. The patient was at [facility] following her recent hospitalization for COPD exacerbation. The patient reported that she was feeling extremely weak and not able to move around. She was evaluated and noted to have orthostasis. X-ray of the left hip showed nondisplaced greater trochanteric fracture. The patient is now being admitted to the hospital and continues to have weakness. She was also noted to have a small scalp laceration, for which sutures have been placed. PAST MEDICAL HISTORY: Significant for history of severe COPD; recent colitis; rheumatoid arthritis; chronic respiratory failure, on oxygen supplementation; and thoracic vertebral fractures. PAST SURGICAL HISTORY: , tubal ligation, bilateral foot surgery, tonsillectomy, kyphoplasty. ALLERGIES: SHE IS KNOWN TO BE ALLERGIC TO SULFA AND SHELLFISH. MEDICATIONS: She was currently on was DuoNeb nebulizer treatment, meloxicam, Tylenol, oxycodone IR 10 mg every 4 hours p.r.n., Levaquin, metronidazole, prednisone 10 mg daily and OxyIR. SOCIAL HISTORY: The patient lives at [facility]. She does not smoke or drink alcohol. REVIEW OF SYSTEMS: She did complain of having severe weakness and inability to get around. She did complain of having some shortness of air. Denied having any cough. No nausea or vomiting, no abdominal pain. She did not report any headache. She did complain of her left hip pain. PHYSICAL EXAMINATION: GENERAL: Pleasant elderly lady, who is thin built. She was lying in bed, did not appear to be in any distress. She was awake, alert, oriented to place and person. [address] [address] HISTORY AND PHYSICAL Name: TORREY GARAY Aixa Room #: 419-P [facility] IN ..#: [id number] Admission: 12/18/17 Attend Phys: Edna Freeman MD Discharge: Date of : 35 Report #: [id number] VITAL SIGNS: She was febrile with a temperature of 36.9, pulse of 104, respiratory rate of 20, blood pressure 119/63, oxygen saturation 96% on supplemental oxygen. HEENT: There was mild pallor, no icterus. Mucosa was moist. SKIN: Thin. The patient had a scalp laceration, which was sutured. There were some superficial skin tears with bleeding. LUNGS: Clear to auscultation with no wheezing or crackles. HEART: was tachycardic. ABDOMEN: Soft, nontender, bowel sounds normally heard. EXTREMITIES: Revealed trace edema and the patient had tenderness along the left greater trochanteric area. LABORATORY DATA: On admission showed urine, which was essentially clear. Hemoglobin was 12, hematocrit 36.7, white cell count was 10.4, platelet count of 263. PT was 10.7, INR of 1. Sodium 140, potassium 3.8, chloride 102, bicarbonate of 34, BUN of 21, creatinine of 0.9. X-ray of the left hip showed a nondisplaced greater trochanter fracture. ASSESSMENT: 1. Myopathy. 2. Severe chronic obstructive pulmonary disease. 3. Chronic respiratory failure with hypoxia. 4. Nondisplaced greater trochanteric fracture on the left side. 5. Rheumatoid arthritis with chronic steroid use. PLAN: Continue current medications. Focus on pain control and have a Physical Therapy evaluation to increase . DICTATION ENDS HERE. <ELECTRONICALLY SIGNED> By: Edna Freeman MD 12/21/17 1208 0951 1015 Edna Freeman MD /nt
--- NOTE | ~2017-12-18 | D ---
[facility] [place] [address] DISCHARGE SUMMARY Name: TORREY GARAY Aixa Room #: 419-P [facility] IN M.R.#: [id number] Admission: 12/18/17 Attend Phys: Edna Xavier MD Discharge: 12/28/17 Date of : 35 Report #: [id number] THIS REPORT FOR: //name// CC: Hebert Xavier FINAL DIAGNOSES: 1. Left greater trochanter fracture. 2. Rheumatoid arthritis. 3. Chronic obstructive pulmonary disease. 4. Steroid dependence. 5. Left proximal femur fracture. HOSPITAL COURSE: The patient was admitted with left hip pain. X-ray revealed a nondisplaced fracture of the left greater trochanter. She was treated conservatively. Usual medications were continued. She participated with physical therapy. PHYSICAL EXAMINATION: On the day of discharge: GENERAL: She was awake and alert. VITAL SIGNS: Stable. LUNGS: Clear. HEART: Regular. ABDOMEN: Soft, normoactive bowel sounds. EXTREMITIES: No edema. DISPOSITION: She will return to [facility] under the care of inhouse physician. Diet and activity as tolerated, physical and occupational therapies. She will continue all usual medications. ADDENDUM: On the day of the previously planned discharge, she was complaining of significantly increased pain in the left hip. A CT was obtained, which showed a fracture involving the proximal femur just below the femoral neck and greater trochanter area. Dr. Hubbard was consulted and recommended IM nailing to stabilize the area as this was at risk of complete fracture without being stabilized. She was taken to the operating room the following day. Please see that operative report. She was then watched for an additional week essentially for pain control and medical optimization. She had no other interval complications. Fentanyl patch was ordered and her oxycodone was increased to 15 mg a day. DISPOSITION: To be transferred to [facility]. She will continue same medications with fentanyl patch 25 mcg every 72 hours, oxycodone 15 mg q.[address] [address] DISCHARGE SUMMARY Name: TORREY GARAY Room #: 419-P [facility] IN M.R.#: [id number] Admission: 12/18/17 Attend Phys: Edna Xavier MD Discharge: 12/28/17 Date of : 35 Report #: [id number] hours p.r.n. pain, Lovenox DVT prophylaxis for a month. She will be under the care of inhouse physician. <ELECTRONICALLY SIGNED> By: Adrián Mason MD 12/29/17 1520 [id number] [id number] Adrián Mason MD /nt
--- NOTE | ~2017-12-18 | D ---
[facility] [place] [address] DISCHARGE SUMMARY Name: TORREY GARAY Aixa Room #: 419-P [facility] IN M.R.#: [id number] Admission: 12/18/17 Attend Phys: Edna Xavier MD Discharge: 12/28/17 Date of : 35 Report #: [id number] THIS REPORT FOR: //name// CC: Hebert Xavier DATE OF SERVICE: 12/28/2017 ADDENDUM: FINAL DIAGNOSIS: Left proximal femur fracture. On the day of the previously planned discharge, she was complaining of significantly increased pain in the left hip. A CT was obtained, which showed a fracture involving the proximal femur just below the femoral neck and greater trochanter area. Dr. Hubbard was consulted and recommended IM nailing to stabilize the area as this was at risk of complete fracture without being stabilized. She was taken to the operating room the following day. Please see that operative report. She was then watched for an additional week essentially for pain control and medical optimization. She had no other interval complications. Fentanyl patch was ordered and her oxycodone was increased to 15 mg a day. DISPOSITION: To be transferred to [facility]. She will continue same medications with fentanyl patch 25 mcg every 72 hours, oxycodone 15 mg q.4 hours p.r.n. pain, Lovenox DVT prophylaxis for a month. She will be under the care of inhouse physician. <ELECTRONICALLY SIGNED> By: Adrián Mason MD 12/29/17 1521 1316 1328 Adrián Mason MD /nt
--- NOTE | ~2017-12-18 | O ---
[facility] [place] [address] OPERATIVE REPORT Name: GARAYTORREY Aixa Room #: 419-P [facility] IN M.R.#: [id number] Admission: 12/18/17 Attend Phys: Edna Xavier MD Discharge: 12/28/17 Date of : 35 Report #: [id number] THIS REPORT FOR: //name// CC: Hebert Xavier DATE OF SERVICE: 12/24/2017 PREOPERATIVE DIAGNOSIS: Left basicervical femoral neck fracture with greater trochanter fracture. POSTOPERATIVE DIAGNOSIS: Left basicervical femoral neck fracture with greater trochanter fracture. PROCEDURE: Treatment of left basicervical femoral neck fracture and greater trochanteric fracture with an IM nail. SURGEON: Jovany Hubbard MD CORN SHELLER OPERATOR: Fany Bay PA-C INDICATIONS FOR ASSISTANCE: Throughout the case, extensive retraction and manipulation of the hip was required. This was afforded to me by my elementary assistant teacher. ANESTHESIA: LMA. IMPLANTS: [employer]kins [employer]hew size short InterTan nail with a size 85/80 lag screw and compression screw and a size 30 distal locking screw. ESTIMATED BLOOD LOSS: 25 mL. COMPLICATIONS: None. SPECIMENS: None. CONDITION UPON LEAVING THE OPERATING ROOM: Stable. INDICATIONS FOR PROCEDURE: The patient is an 82-year-old female who fell and has been having left hip pain. She had a CT scan shown to have a greater trochanteric fracture as well as a basicervical femoral neck fracture on the tension side that was incomplete. She was having significant pain in her hip and after discussion with her, she elected for treatment with IM nail. DESCRIPTION OF PROCEDURE: Risks, benefits, alternatives, complications were discussed in detail with the patient including but not limited to risk of anesthesia, risk of damage to nerves, arteries, blood vessels, risk for [facility] [address] [place] [address] OPERATIVE REPORT Name: DAISHA GARAYLEOBARDO Kruse Room #: 419-P [facility] IN [facility]#: [id number] Admission: 12/18/17 Attend Phys: Edna Xavier MD Discharge: 12/28/17 Date of : 35 Report #: [id number] infection, bleeding, risk for continued hip pain and need for reoperation. Informed consent was obtained from the patient. The left hip was appropriately marked in the preoperative holding area. IV Ancef was given for preoperative antibiotics. She was brought to the operating room and LMA anesthesia was induced without complication. She was transferred to the Hailey table and left lower extremity was placed in slight traction. Right lower extremity was scissored. Fluoroscopic imaging was brought in to verify that adequate images could be taken as was the case. Left hip was then prepped and draped in normal sterile fashion. Timeout was performed properly identifying the patient and procedure as well as the instrumentation and implants. All in the operating room were in agreement. A 2-inch incision proximal to the tip of the greater trochanter was made with a 10 blade through the skin and fascia. Threaded tip guidewire was taken and placed on the tip of the greater trochanter and taken down to the lesser trochanter under fluoroscopic imaging to be verified in good starting portal position. An entry portal reamer was used to ream the entry portal and a short InterTan nail was placed down into the medullary canal of the femur and seated. The guidepin for the lag screw was then placed up into the femoral head under AP and lateral images to be verified in the center-center position. This was measured and found to be an 85. The path for the compression screw was then placed. It was then drilled and the derotation bar was placed. The drill for the compression screw was then drilled up to an 85 mm depth and an 85 mm compression screw was placed. The 80 mm lag screw was placed and 1 distal locking screw in the dynamic slot was placed. This was 30 mm in length. The guide was removed from the nail and final fluoroscopic images were taken to verify adequate placement of the nail and length of screws as was the case. After this, the wounds were thoroughly irrigated with normal saline and closed with 2-0 Vicryl and skin magi. Soft dressing of Adaptic, 4 x 4, ABD and Medipore tape were applied. The patient tolerated this procedure well and went to the recovery room under care of Anesthesia postoperatively. <ELECTRONICALLY SIGNED> By: Jovany Hubbard MD 12/30/17 1448 1019 1051 Jovany Hubbard MD /nt
[~2017-12-18 14:25] MED LIST changes: +ACETAMINOPHEN325 M1 PO; +ARAVA10 MG PO; +DUONEB 2.5-0.5 M3 ML INH; +FLAGYL500 MG PO; +MOBIC7.5 M1 PO; +REMERON15 MG PO; +ZOLOFT100 MG PO
[2017-12-18 14:26] VITALS: BP 118/58
[2017-12-18 15:08] LABS: HEMATOCRIT 36.7 % (37.0-47.0); MCH 29.5 pg (26.0-34.0); MCHC 32.9 g/dL (28.0-37.0); MCV 89.8 fL (80.0-100.0); PLATELET COUNT 263 thou/uL (150-400); RBC 4.08 mil/uL (4.20-5.00); WBC 10.4 thou/uL (4.0-11.0)
[2017-12-18 15:19] LABS: ANION GAP 4 mmol/L (7-16); BUN 21 mg/dL (7-18); CHLORIDE 102 mmol/L (98-107); CO2 34 mmol/L (21-32); CREATININE 0.9 mg/dL (0.6-1.0); GLUCOSE 164 mg/dL (74-106); POTASSIUM 3.8 mmol/L (3.5-5.1); SODIUM 140 mmol/L (136-145)
[2017-12-18 15:23] LABS: PROTIME 10.7 Seconds (9.3-11.4)
[2017-12-18 15:27] LABS: ABSOLUTE NEUTROPHILS 9.2 thou/uL (1.4-8.2); ALBUMIN 2.6 g/dL (3.4-5.0); PLATELET ESTIMATE NORMAL; SGOT 43 U/L (15-37); SGPT 33 U/L (30-65); TOTAL BILIRUBIN 0.2 mg/dL (<0.1-1.0); TOTAL PROTEIN 6.1 g/dL (6.4-8.2); TROPONIN-I < 0.04 ng/mL (<0.06)
[2017-12-18] MEDS ORDERED: SERTRALINE HCL50 MG PO (18:30)
[2017-12-18 18:32] LABS: URINE BILIRUBIN NEGATIVE (Negative); URINE BLOOD TRACE (Negative); URINE CLARITY SL CLOUDY; URINE COLOR YELLOW; URINE GLUCOSE-RANDOM* NEGATIVE (Negative); URINE KETONES NEGATIVE (Negative); URINE LEUKOCYTES NEGATIVE (Negative); URINE NITRITE NEGATIVE (Negative); URINE PROTEIN (DIPSTICK) TRACE (Negative); URINE UROBILINOGEN 0.2 E.U./dl (0.2-1.0)
[2017-12-18 19:19] VITALS: BP 120/60
[2017-12-18 19:55] VITALS: BP 106/56
[2017-12-18 20:55] VITALS: BP 114/63
[2017-12-19 04:00] VITALS: BP 157/67
[2017-12-19 08:02] VITALS: BP 119/63
[2017-12-19 17:25] VITALS: BP 102/52
[2017-12-19 21:30] VITALS: BP 108/55
[2017-12-20 05:00] VITALS: BP 132/76
[2017-12-20 07:50] VITALS: BP 111/59
[2017-12-20 15:20] VITALS: BP 109/62
[2017-12-20 20:00] VITALS: BP 120/65; BP 122/52
[2017-12-21 04:00] VITALS: BP 134/73
[2017-12-21 07:20] VITALS: BP 113/62
[2017-12-21] MEDS ORDERED: OXYCODONE HCL10 MG PO (13:12)
[2017-12-21 15:35] VITALS: BP 112/56
[2017-12-21 20:27] VITALS: BP 132/63
[2017-12-22 07:18] VITALS: BP 156/69
[2017-12-22 15:35] VITALS: BP 118/66
[2017-12-22 20:00] VITALS: BP 115/62
[2017-12-23 04:30] VITALS: BP 121/94
[2017-12-23 07:25] VITALS: BP 80/48
[2017-12-23 15:20] VITALS: BP 103/59
[2017-12-23 19:15] VITALS: BP 101/53
[2017-12-24 03:55] VITALS: BP 127/66
[2017-12-24 07:05] VITALS: BP 120/63
[2017-12-24 07:22] LABS: HEMATOCRIT 29.4 % (37.0-47.0); HEMOGLOBIN 9.6 gm/dL (12.0-15.0); MCH 29.1 pg (26.0-34.0); MCHC 32.7 g/dL (28.0-37.0); MCV 89.1 fL (80.0-100.0); RBC 3.3 mil/uL (4.20-5.00); RDW 16.6 % (10.5-14.5); WBC 11.6 thou/uL (4.0-11.0)
[2017-12-24 07:29] LABS: CALCIUM 8.2 mg/dL (8.5-10.1); CREATININE 0.5 mg/dL (0.6-1.0); POTASSIUM 3.7 mmol/L (3.5-5.1)
[2017-12-24 08:48] VITALS: BP 135/70
[2017-12-24 11:43] VITALS: BP 118/63
[2017-12-24 15:17] VITALS: BP 113/69
[2017-12-24 15:33] LABS: HEMATOCRIT 29.3 % (37.0-47.0); HEMOGLOBIN 9.3 gm/dL (12.0-15.0); MCH 28.6 pg (26.0-34.0); MCHC 31.7 g/dL (28.0-37.0); MCV 90.2 fL (80.0-100.0); RBC 3.25 mil/uL (4.20-5.00); RDW 16.6 % (10.5-14.5); WBC 16.8 thou/uL (4.0-11.0)
[2017-12-24 19:17] VITALS: BP 139/72
[2017-12-24 22:32] LABS: URINE BILIRUBIN NEGATIVE (Negative); URINE BLOOD NEGATIVE (Negative); URINE CLARITY CLEAR; URINE COLOR YELLOW; URINE GLUCOSE-RANDOM* NEGATIVE (Negative); URINE KETONES NEGATIVE (Negative); URINE LEUKOCYTES NEGATIVE (Negative); URINE NITRITE NEGATIVE (Negative); URINE PROTEIN (DIPSTICK) 1+ (Negative); URINE SPECIFIC GRAVITY 1.025 (1.005-1.035); URINE UROBILINOGEN 0.2 E.U./dl (0.2-1.0)
[2017-12-24 22:46] LABS: SQUAMOUS 4-10 Moderate /LPF (0-3); URINE RBC 0-2 Rare /HPF (0-2); URINE WBC 0-5 Rare /HPF (0-5)
[2017-12-24 22:47] LABS: BACTERIA 1-9 Few /HPF (None Seen); CASTS None Seen /LPF (None Seen); CRYSTALS None Seen /LPF (None Seen); YEAST Present (None Seen)
[2017-12-25 05:21] VITALS: BP 132/75
[2017-12-25 05:56] LABS: HEMATOCRIT 27.7 % (37.0-47.0); HEMOGLOBIN 8.9 gm/dL (12.0-15.0); MCH 28.9 pg (26.0-34.0); MCHC 32.1 g/dL (28.0-37.0); MCV 89.9 fL (80.0-100.0); RBC 3.08 mil/uL (4.20-5.00); RDW 16.7 % (10.5-14.5); WBC 14.8 thou/uL (4.0-11.0)
[2017-12-25 07:50] VITALS: BP 116/58
[2017-12-25 15:10] VITALS: BP 132/68
[2017-12-25 18:58] VITALS: BP 123/60
[2017-12-26 03:39] VITALS: BP 118/55
[2017-12-26 05:11] LABS: HEMATOCRIT 22.9 % (37.0-47.0); HEMOGLOBIN 7.5 gm/dL (12.0-15.0); MCH 29.4 pg (26.0-34.0); MCHC 32.9 g/dL (28.0-37.0); MCV 89.3 fL (80.0-100.0); RBC 2.56 mil/uL (4.20-5.00); RDW 16.5 % (10.5-14.5); WBC 10.7 thou/uL (4.0-11.0)
[2017-12-26 07:40] VITALS: BP 113/63
[2017-12-26 15:10] VITALS: BP 107/66
[2017-12-26 19:24] VITALS: BP 116/52
[2017-12-26 23:56] VITALS: BP 121/88
[2017-12-27 03:35] VITALS: BP 129/68
[2017-12-27 03:49] LABS: HEMATOCRIT 22.8 % (37.0-47.0); HEMOGLOBIN 7.5 gm/dL (12.0-15.0); MCH 29.4 pg (26.0-34.0); MCHC 32.7 g/dL (28.0-37.0); MCV 89.8 fL (80.0-100.0); RBC 2.54 mil/uL (4.20-5.00); RDW 16.8 % (10.5-14.5); WBC 9.7 thou/uL (4.0-11.0)
[2017-12-27 04:06] LABS: CALCIUM 8.3 mg/dL (8.5-10.1); CREATININE 0.5 mg/dL (0.6-1.0); POTASSIUM 4.1 mmol/L (3.5-5.1)
[2017-12-27 08:33] VITALS: BP 140/75
[2017-12-27 20:00] VITALS: BP 95/59
[2017-12-28 04:00] VITALS: BP 146/74
[2017-12-28 07:27] VITALS: BP 123/63
[2017-12-28] MEDS ORDERED: ACETAMINOPHEN325 M1 PO (13:13)
[2017-12-28] MEDS ORDERED: FERREX 150 PLU1 EAC1 PO (13:13)
[2017-12-28] MEDS ORDERED: DURAGESIC25 MCG/HR TRANSDERM (13:13)
[2017-12-28] MEDS ORDERED: OXYCODONE HCL15 MG PO (13:13)
[2017-12-28] MEDS ORDERED: ENOXAPARIN40 MG/0.1 SUBQ (13:13)
[2017-12-28] MEDS ORDERED: DUONEB 2.5-0.5 M3 ML INH (13:13)
[2017-12-28] MEDS ORDERED: NEURONTIN600 MG PO (13:13)
[2017-12-28 15:17] VITALS: BP 107/59
== END 2017-12-28 16:00 | DRG 480 ==
LOC: ER 14:25 → 4E 17:53 → EROBS 17:53 → 4E 19:54
PROVIDERS: Internal Medicine Geriatric Medicine; Nurse Practitioner Family; Orthopaedic Surgery; Physician Assistant Surgical
PROC: 0QH706Z Insertion of Intramedullary Internal Fixation Device into Left Upper Femur, Open Approach (ICD-10-PCS; principal; 2017-12-24)
DX: S72.115A Nondisplaced fracture of greater trochanter of left femur, initial encounter for closed fracture (principal); E43 Unspecified severe protein-calorie malnutrition; J96.11 Chronic respiratory failure with hypoxia; J44.9 Chronic obstructive pulmonary disease, unspecified; M06.9 Rheumatoid arthritis, unspecified; F32.9 Major depressive disorder, single episode, unspecified; E86.9 Volume depletion, unspecified; G72.9 Myopathy, unspecified; W18.39XA Other fall on same level, initial encounter; Y93.89 Activity, other specified; Y92.89 Other specified places as the place of occurrence of the external cause; Y99.8 Other external cause status; Z79.899 Other long term (current) drug therapy; Z88.2 Allergy status to sulfonamides; Z91.013 Allergy to seafood; Z79.52 Long term (current) use of systemic steroids; Z23 Encounter for immunization; Z99.81 Dependence on supplemental oxygen
CPT/HCPCS: 10183; 50010; 50101; 50386; 51412; 51538; 52304; 55445; 56524; 57092; 62110; 62900; 70005

== ENCOUNTER 2018-10-17 13:34 | Inpatient (IN) | payer OTHER, MEDICARE ==
[~2018-10-17] VITALS: Ht 162.6 cm; Wt 51.3 kg
--- NOTE | ~2018-10-17 | D ---
[facility] [place] [address] DISCHARGE SUMMARY Name: GARAYTORREY Room #: 354-P ADM IN M.R.#: [id number] Admission: 10/17/18 Attend Phys: Judy Mckeon Discharge: Date of : 35 Report #: [id number] THIS REPORT FOR: //name// CC: Hebert Gore FINAL DIAGNOSES: 1. Left submandibular glandular infection. 2. Chronic obstructive pulmonary disease. HOSPITAL COURSE: The patient was admitted with pain, swelling and redness to the left lower jaw. She was admitted for infection with IV antibiotics. ENT followed her with no surgical intervention. She responded well to routine care. She had no other interval complication and home medications were continued. PHYSICAL EXAMINATION: GENERAL: On the day of discharge, she was awake and alert with stable vital signs including afebrile status. LUNGS: Clear. HEART: Regular. ABDOMEN: Soft, normoactive bowel sounds. EXTREMITIES: No edema. The left jaw showed some mild swelling. It was nontender. There is no erythema. DISPOSITION: She is discharged home to resume all usual medications, diet, activity, oxygen plus Augmentin twice a day for 10 days. Follow up with Dr. Gore in 1 week. By: 1048 1337 Adrián Mason MD /nt
[~2018-10-17 13:34] MED LIST changes: +DURAGESIC25 MCG/HR TRANSDERM; +ENOXAPARIN40 MG/0.1 SUBQ; +FERREX 150 PLU1 EAC1 PO; +OXYCODONE HCL10 MG PO; +OXYCODONE HCL15 MG PO; +SERTRALINE HCL50 MG PO
[2018-10-17 13:35] VITALS: BP 129/87
[2018-10-17 13:56] LABS: PCO2 37.3 mmHg (35.0-45.0); PO2 70.3 mmHg (80.0-100.0); pH 7.538 (7.360-7.450); sO2 95.8 % (92.0-98.0)
[2018-10-17 14:52] LABS: HEMATOCRIT 37.9 % (37.0-47.0); HEMOGLOBIN 12.6 gm/dL (12.0-15.0); MCH 31.1 pg (26.0-34.0); MCHC 33.1 g/dL (28.0-37.0); MCV 93.7 fL (80.0-100.0); PLATELET COUNT 185 thou/uL (150-400); RBC 4.04 mil/uL (4.20-5.00); RDW 14.2 % (10.5-14.5); WBC 14.4 thou/uL (4.0-11.0)
[2018-10-17 15:10] LABS: ANION GAP 6 mmol/L (7-16); BUN 10 mg/dL (7-18); CALCIUM 9.4 mg/dL (8.5-10.1); CHLORIDE 95 mmol/L (98-107); CO2 35 mmol/L (21-32); CREATININE 0.7 mg/dL (0.6-1.0); GLUCOSE 127 mg/dL (74-106); POTASSIUM 3.8 mmol/L (3.5-5.1); SODIUM 136 mmol/L (136-145)
[2018-10-17 15:22] LABS: TROPONIN-I <0.06 ng/mL (<0.06)
[2018-10-17 17:37] LABS: ABSOLUTE NEUTROPHILS 12.2 thou/uL (1.4-8.2); ANISOCYTOSIS SLIGHT; ATYPICAL LYMPHS 2 %; LARGE PLATELETS OCCASIONAL; METAMYELOCYTES 1 %; POIKILOCYTOSIS SLIGHT
[2018-10-17 17:57] LABS: URINE BILIRUBIN NEGATIVE (Negative); URINE BLOOD 1+ (Negative); URINE CLARITY CLEAR; URINE GLUCOSE-RANDOM* NEGATIVE (Negative); URINE KETONES 1+ (Negative); URINE LEUKOCYTES-REFLEX NEGATIVE (Negative); URINE NITRITE-REFLEX NEGATIVE (Negative); URINE PROTEIN (DIPSTICK) 2+ (Negative); URINE UROBILINOGEN 0.2 E.U./dl (0.2-1.0)
[2018-10-17 17:58] LABS: URINE COLOR YELLOW
[2018-10-17 18:06] LABS: CASTS None Seen /LPF (None Seen); MUCUS 0-3 Light strn/LPF (None Seen); SQUAMOUS 0-3 Few /LPF (0-3); URINE RBC 0-2 Rare /HPF (0-2); URINE WBC-REFLEX 0-5 Rare /HPF (0-5)
[2018-10-17 18:07] LABS: BACTERIA-REFLEX None Seen /HPF (None Seen); CRYSTALS None Seen /LPF (None Seen)
[2018-10-17 19:33] VITALS: BP 137/76
[2018-10-17 20:27] VITALS: BP 131/68
[2018-10-17 20:46] VITALS: BP 141/81
--- NOTE | 2018-10-17 21:46 | NUR ---
PT ARRIVED ON UNIT, ADMITTED TO ROOM 354 FROM ED. PT ALERT AND ORIENTATED TO SELF, TIME, PLACE, UNABLE TO VERBALIZE REASON FOR COMING TO HOSPITAL. PT CALM AND COOPERATIVE WITH NURSING CARES. HX AND ASSESSMENT COMPLETED, SEE Adpoints. ON TELE MONITORING, VSS, TACHY. ON 5L O2 VIA N/C, NO S/SX OF RESP DISTRESS AT THIS TIME. EDEMATOUS AND TENDER L JAW WITH REDNESS. PT DENIES CONCERNS AT THIS TIME, SLOW TO ANSWER QUESTIONS. DENIES N/V. HOURLY ROUNDING. BED ALARM ON. WILL CONTINUE TO MONITOR PT.
[2018-10-18 00:18] VITALS: BP 149/91
[2018-10-18 04:14] VITALS: BP 169/76
[2018-10-18 07:44] VITALS: BP 157/80
[2018-10-18] MEDS ORDERED: ARAVA20 MG PO (09:02)
--- NOTE | 2018-10-18 11:02 | NUR ---
ASSESSMENT-PT LIVES IN [facility]DEP[facility] PT USES A WALKER TO GET AROUND AND DOES HER OWN ADLS. PT HAS O2 THRU [facility]. PT SAYS SHE HAS NOT HAD ANY HH IN THE PAST. S/W DTR DPOA ERUM LOZANO BY PHONE TO CONFIRM ABOVE INFO. CONDITION UPDATE GIVEN TO DTR AND CASE DISCUSSED WITH DR LIZARRAGA. ENT DR TO SEE. DR LIZARRAGA BY PHONE WELL. FOLLOWING TO ASSIST WITH DC PLANNING. IV ABX HAVE BEEN STARTED.
--- NOTE | 2018-10-18 11:18 | EKG ---
[address] [address] ELECTROCARDIOGRAM REPORT Name: TORREY GARAY Room #: 354-P ADM IN M.R.#: [id number] Admission: 10/17/18 Attend Phys: Judy Mckeon Discharge: Date of : 35 Report #: [id number] THIS REPORT FOR: //name// [facility] ED Test Date: 2018-10-17 Test Time: 13:41:02 Pat Name: TORREY JEANGINS Department: Room: [facility] Gender: F Lithographic Platemaker: DWAYNE : 1935 Requested By: Paige Wooten Order Number: [id number] MD: Wyatt Michaels Measurements Intervals Ward Rate: 126 P: -10 CO: 140 QRS: -73 QRSD: 87 T: 112 QT: 319 QTc: 462 Interpretive Statements Sinus tachycardia Left atrial enlargement Left anterior fascicular block RBBB Left ventricular hypertrophy Compared to ECG 12/18/2017 14:41:50 Sinus arrhythmia no longer present Ventricular premature complex(es) no longer present Early repolarization no longer present Electronically Signed On 10-18-2018 11:18:22 MANAGER OF RADIOLOGY by Wyatt Michaels [email or web address] <ELECTRONICALLY SIGNED> By: Wyatt Michaels MD 10/18/18 1118 1341 1341 Wyatt Michaels MD /EPI
[2018-10-18 12:00] VITALS: BP 151/78
[2018-10-18 16:20] VITALS: BP 109/62
--- NOTE | 2018-10-18 17:23 | NUR ---
PT DENIES SHORTNESS OF AIR...95% SAT 4L WHICH IS HOME SETTINGS..
--- NOTE | 2018-10-18 17:24 | NUR ---
PT WITH PAIN TO RT MANDIBLE AREA..SWOLLEN..MARKED WITH MARKER TO MONITOR SWELLING...ICE PRN..
[2018-10-18 19:25] VITALS: BP 113/67
[2018-10-19 03:47] VITALS: BP 132/68
--- NOTE | 2018-10-19 06:36 | NUR ---
PT IS ALERT AND ORIENTED X 4. PT VOIDED ONLY 25CC AND FELT LIKE SHE STILL HAD TO GO TO THE BATHROOM. PT BLADDER SCANNED TO FIND [address] BUCKLEY CALLED. OK TO STRAIGHT CATH. ABLE TO GET [address] BUCKLEY CALLED WITH THE RESULTS. AM LABS ORDERED.
--- NOTE | 2018-10-19 06:42 | NUR ---
PT STATES THAT SHE HAS A HYPERSENSITIVE GAGGING REFLEX. SHE STATES THAT SHE HAS A LOT OF TROUBLE WHEN SHE GOES TO THE DENTIST, SO SHE HAS NOT BEEN THERE IN OVER A YEAR. SHE STATES THAT SHE WENT AROUND OCTOBER 08, 2017, WHICH WAS TWO WEEKS BEFORE HER OF 68 YEARS . PT STATES THAT SHE CURRENTLY DOES NOT HAVE A DENTIST. SHE FEELS LIKE SHE NEEDS TO FIND ONE THAT WILL 'KNOCK HER OUT BEFORE THEY DO ANY ORAL CARE/WORK.'
[2018-10-19 07:04] VITALS: BP 108/56
[2018-10-19 09:36] LABS: HEMATOCRIT 31.1 % (37.0-47.0); MCH 30.8 pg (26.0-34.0); MCHC 32.4 g/dL (28.0-37.0); MCV 94.9 fL (80.0-100.0); RBC 3.28 mil/uL (4.20-5.00); RDW 14.2 % (10.5-14.5); WBC 9.7 thou/uL (4.0-11.0)
--- NOTE | 2018-10-19 09:36 | H ---
[facility] [place] [address] HISTORY AND PHYSICAL Name: TORREY GARAY Aixa Room #: 354-P ADM IN M.R.#: [id number] Admission: 10/17/18 Attend Phys: Judy Mckeon Discharge: Date of : 35 Report #: [id number] THIS REPORT FOR: //name// CC: Hebert Gore DATE OF SERVICE: 10/17/2018 CHIEF COMPLAINT: An 83-year-old female with swelling, left mandibular area. HISTORY OF PRESENT ILLNESS: This is an 83-year-old patient well known to my service, who has been failing recently with progressive issues with rheumatoid arthritis with immunosuppression and now increasing confusion, weakness and swelling of her left mandibular area. Her daughter had seen her the day previously and there were no issues and last night noted significant change with marked swelling and redness of her left face. This patient has rheumatoid arthritis with immunosuppression on Arava and prednisone. 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 PAST SURGICAL HISTORY: She has had previous kyphoplasty from underlying osteoporosis in the thoracic vertebra. She has had foot surgery in the past, T and A and multiple C-sections and tubal ligation. MEDICATIONS: List includes iron supplementation, oxycodone immediate release, gabapentin, sertraline, prednisone 10 mg daily and Arava 20 mg daily. ALLERGIES: INCLUDE SULFONAMIDES. FAMILY HISTORY: Noncontributory. SOCIAL HISTORY: She is trying to maintain relatively independent living situation at [place]. No smoking or alcohol of any significance. REVIEW OF SYSTEMS: Twelve-point otherwise negative. PHYSICAL EXAMINATION: GENERAL: Shows her to be lying in bed. She is in no distress. She is awake, alert and oriented. She has obvious left facial swelling. VITAL SIGNS: However, were stable. HEENT: Showed redness and swelling below the parotid gland in the area of the left mandible. I did not feel swelling of the submandibular gland or left parotid gland. CHEST: Diminished. CARDIOVASCULAR: Showed a regular rate and rhythm. ABDOMEN: Soft and nontender. EXTREMITIES: No cyanosis, clubbing or edema. NEUROLOGIC: Showed nothing focal. [facility] [address] [place] [address] HISTORY AND PHYSICAL Name: TORREY GARAY Aixa Room #: 354-P ADM IN ..#: [id number] Admission: 10/17/18 Attend Phys: Judy Mckeon Discharge: Date of : 35 Report #: [id number] LABORATORY DATA: I reviewed the chest x-ray and the CT of the neck, which confirmed evidence of suspected cellulitis, probably of dental origin. ASSESSMENT AND PLAN: This is a patient with immunosuppression from rheumatoid arthritis and Arava use, who now has left facial cellulitis and the possibility of dental origin seems high to me at this point, less likely would be involvement from the salivary glands. We will initiate broad spectrum antibiotics in the form of clindamycin and piperacillin. We will obtain ENT evaluation and possibly dental intervention depending on the clinical course. 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 <ELECTRONICALLY SIGNED> By: Hebert Gore MD 10/19/18 0936 1114 1132 Hebert Gore MD /PMT
[2018-10-19 09:37] LABS: HEMOGLOBIN 10.1 gm/dL (12.0-15.0)
[2018-10-19 09:48] LABS: CALCIUM 7.8 mg/dL (8.5-10.1); CREATININE 0.9 mg/dL (0.6-1.0); POTASSIUM 3.3 mmol/L (3.5-5.1)
[2018-10-19 15:31] VITALS: BP 133/70
--- NOTE | 2018-10-19 16:39 | NUR ---
Assumed care of PT at 0700. Cellulitis showing improvement. clear liquid diet continued. pt complaining of sore throat - finding good relief with benzocaine spray. up to chair x2 today per physician order. sinus on telemetry. pt progress toward poc goals.
[2018-10-19 19:05] VITALS: BP 114/63
--- NOTE | 2018-10-20 03:13 | NUR ---
Pt. slept fair during the night. Medicated for pain with some relief. Maintaining O2 sat greater than 90% on 4L/NC. Denies being short of breath with exertion. Uses bedpan to void with periods of stress incontinence. Left face less swollen. Verbalized she's hungry and wanting regular food but understands she can't have it yet. Denies any other concern. Making progress towards care plan goals.
[2018-10-20 04:07] VITALS: BP 123/64
[2018-10-20 05:45] LABS: ABSOLUTE NEUTROPHILS 4.9 thou/uL (1.4-8.2); EOSINOPHILS 6.8 % (0.0-3.0); HEMATOCRIT 27.8 % (37.0-47.0); HEMOGLOBIN 9.3 gm/dL (12.0-15.0); LYMPHOCYTES 12.9 % (24.0-44.0); MCH 31.6 pg (26.0-34.0); MCHC 33.3 g/dL (28.0-37.0); MONOCYTES 13.9 % (1.0-8.0); PLATELET COUNT 161 thou/uL (150-400); POLYS 64.4 % (36.0-66.0); RBC 2.93 mil/uL (4.20-5.00); RDW 14.5 % (10.5-14.5); WBC 7.6 thou/uL (4.0-11.0)
[2018-10-20 05:54] LABS: CALCIUM 8.2 mg/dL (8.5-10.1); CREATININE 0.8 mg/dL (0.6-1.0); POTASSIUM 3.3 mmol/L (3.5-5.1)
[2018-10-20 07:19] VITALS: BP 118/66
--- NOTE | 2018-10-20 13:56 | NUR ---
SW reviewed chart and spoke with nursing. Pt is progressing towards goals for discharge. Discharge home is anticipated for tomorrow. SW is following to assist as needed with discharge planning.
[2018-10-20 14:21] VITALS: BP 87/50
--- NOTE | 2018-10-20 17:17 | NUR ---
Assumed care of Pt at 0700 . Pt AOx4 in no acute distress. pain well controlled with curreng med regimen. swelling continuing to improve. ambulating well around hallway w/ physical therapy. x2 bm today. diet advanced as tolerated w/o complications. iv abx infusing per order. maintenance fluids d/c'd. anticipating d/c 1-2 days. [facility].
[2018-10-20 18:10] VITALS: BP 126/65
[2018-10-20 20:30] VITALS: BP 121/60
--- NOTE | 2018-10-21 03:13 | NUR ---
Pt. has slept well during the night. Medicated for pain with some relief. Maintaining O2 sat greater than 90% on 5L/NC. Shortness of breath with exertion. Voided per bedpan last night per her request. Bed alarm on. Calls appropriately if she needs assistance. Progressing towards care plan goals.
[2018-10-21 03:30] VITALS: BP 155/71
[2018-10-21 08:20] VITALS: BP 132/70
[2018-10-21] MEDS ORDERED: AUGMENTIN 875-1 EACH PO (10:28)
[2018-10-21 11:01] VITALS: BP 132/70
--- NOTE | 2018-10-21 13:33 | NUR ---
PT IS CURRENTLY MEETING LISTED POC GOALS. PT C/O OF LEFT FACIAL DISCOMFORT BUT REPORTS SWELLING HAS DECREASED SIGNIFICANTLY. PT REQURES X1 ASSISTANCE FOR TRANSFERS AND AMB. IV ABX INFUSING ORDERED. PT TO DISCHARGE TO [facility] THIS AFTERNOON. PT DISCHARGED OFF OF UNIT AT 1340.
[2018-10-21 13:56] VITALS: BP 132/70
--- NOTE | 2018-10-21 14:26 | NUR ---
DISCHARGE NOTE: SW reviewed chart and spoke with nursing. Pt is medically stable for discharge home today. Pt's family provided transportation home. No SW needs identified at this time, but is available to assist should needs arise.
== END 2018-10-21 13:52 | disposition home or self-care (01) | DRG 603 ==
LOC: ER 13:34 → EROBS 18:35 → 3W 18:35
PROVIDERS: Emergency Medicine; Internal Medicine; ADMIT Internal Medicine
DX: L03.211 Cellulitis of face (principal); J96.10 Chronic respiratory failure, unspecified whether with hypoxia or hypercapnia; R65.10 Systemic inflammatory response syndrome (SIRS) of non-infectious origin without acute organ dysfunction; M06.9 Rheumatoid arthritis, unspecified; F32.9 Major depressive disorder, single episode, unspecified; J44.9 Chronic obstructive pulmonary disease, unspecified; M81.0 Age-related osteoporosis without current pathological fracture; Z88.2 Allergy status to sulfonamides; Z91.013 Allergy to seafood; Z79.899 Other long term (current) drug therapy; Z23 Encounter for immunization
CPT/HCPCS: 10879

== ENCOUNTER 2019-01-09 12:04 | Inpatient (IN) | payer OTHER, MEDICARE ==
[~2019-01-09] VITALS: Ht 160 cm; Wt 47.5 kg
[~2019-01-09 12:04] MED LIST changes: +ARAVA20 MG PO; +AUGMENTIN 875-1 EACH PO
[2019-01-09 12:06] VITALS: BP 103/49
[2019-01-09 13:12] LABS: BE(vivo) -3.5 mmol/L (-2 to +3); HCO3 23.2 mmol/L (22.0-26.0); PCO2 49.1 mmHg (35.0-45.0); PO2 129.4 mmHg (80.0-100.0); pH 7.293 (7.360-7.450); sO2 98.2 % (92.0-98.0)
[2019-01-09 13:26] LABS: HEMOGLOBIN 10.6 gm/dL (12.0-15.0); RDW 16.2 % (10.5-14.5)
[2019-01-09 13:27] LABS: URINE BILIRUBIN NEGATIVE (Negative); URINE BLOOD NEGATIVE (Negative); URINE CLARITY CLEAR; URINE COLOR YELLOW; URINE GLUCOSE-RANDOM* NEGATIVE (Negative); URINE KETONES NEGATIVE (Negative); URINE LEUKOCYTES-REFLEX TRACE (Negative); URINE NITRITE-REFLEX NEGATIVE (Negative); URINE PROTEIN (DIPSTICK) TRACE (Negative); URINE SPECIFIC GRAVITY 1.025 (1.005-1.035); URINE UROBILINOGEN 0.2 E.U./dl (0.2-1.0)
[2019-01-09 13:29] LABS: HEMATOCRIT 33.1 % (37.0-47.0); MCH 29.5 pg (26.0-34.0); MCV 92.2 fL (80.0-100.0); PLATELET COUNT 312 thou/uL (150-400); RBC 3.59 mil/uL (4.20-5.00)
[2019-01-09 13:32] LABS: CALCIUM 7.4 mg/dL (8.5-10.1); CREATININE 2.4 mg/dL (0.6-1.0); POTASSIUM 3.9 mmol/L (3.5-5.1); WBC 41.3 thou/uL (4.0-11.0)
[2019-01-09 13:38] LABS: ALBUMIN 1.9 g/dL (3.4-5.0); DIRECT BILIRUBIN 0.1 mg/dL (<0.1-0.3); TOTAL BILIRUBIN 0.3 mg/dL (<0.1-1.0); TOTAL PROTEIN 5.5 g/dL (6.4-8.2)
[2019-01-09 13:58] LABS: ABSOLUTE NEUTROPHILS 37.2 thou/uL (1.4-8.2); ANISOCYTOSIS 1+; METAMYELOCYTES 3 %; MYELOCYTES 3 %
[2019-01-09 16:26] VITALS: BP 87/52
[2019-01-09 17:05] VITALS: BP 97/52
[2019-01-09 17:30] VITALS: BP 107/46
--- NOTE | 2019-01-09 18:39 | NUR ---
ASSUMED PATIENT CARE FROM ED. A&OX1. PATIENT HAVING TREMORS, WHICH ARE NEW AND IS VERY DROWSY. PATIENT HAS FALLEN MULTIPLE TIMES IN THE LAST [address] LIZARRAGA NOTIFIED OF PATIENTS ARRIVAL TO FLOOR. FLUIDS ORDERED AND PATIENT PLACED ON NPO STATUS UNTIL TOMORROW DUE TO DROWSINESS. ORAL VANC ALSO STARTED FOR CDIFF. ISOLATION IMPLEMENTED.
[2019-01-09 20:09] VITALS: BP 84/40
--- NOTE | 2019-01-10 03:58 | NUR ---
Assumed care of pt at 2300. Pt forgetful but follows commands. On isolation for C-diff. Multiple loose stools. IVF infusing. Fall precautions in place. Will continue to monitor.
[2019-01-10 04:10] VITALS: BP 118/55
--- NOTE | 2019-01-10 04:21 | NUR ---
CARE ASSUMED AT 1900 AND ENDED AT 2300. PATIENT WAS SLEPY AND DRROWSY. PATIENT WAS AOX1 CONFUSED AND FORGETFUL, PATIENT HAD LOOSE GREEN STOOL WITH STRONG ODOR. PATIENT OXYGEN LEVEL WAS >92& ON 5L.PATIENT IN BED AT THIS TIME BREATHING REGULAR AND UNLABOURED.
[2019-01-10 06:07] LABS: CALCIUM 6.9 mg/dL (8.5-10.1); CREATININE 1.9 mg/dL (0.6-1.0); POTASSIUM 4.1 mmol/L (3.5-5.1)
[2019-01-10 07:16] VITALS: BP 119/52
--- NOTE | 2019-01-10 10:30 | NUR ---
chart review. cm visited with pt at daughter pete at bedside. pt is a & o 2-3 with confusion and forgetfulness. pleasant and quiet. intro to cm, transition of care, home health and post acute. " live [place] [address] [place], alone, use rollator, on main floor. use oxygen all day lone, go to 2 meals in dinning room. manage own medication daily. use shower chair, have call light by bed and in bathroom by shower. been to rehab last year at [facility] and had hh in past also."elena and pete. will cont following as needed for dc needs. dcp pend recommendation [place] with hh vs snf
[2019-01-10 13:13] LABS: HEMATOCRIT 33.1 % (37.0-47.0); HEMOGLOBIN 10.4 gm/dL (12.0-15.0); MCH 29.7 pg (26.0-34.0); MCHC 31.4 g/dL (28.0-37.0); MCV 94.5 fL (80.0-100.0); RBC 3.5 mil/uL (4.20-5.00); RDW 16.9 % (10.5-14.5); WBC 29.2 thou/uL (4.0-11.0)
[2019-01-10 13:14] LABS: BE(vivo) -6.8 mmol/L (-2 to +3); HCO3 19.8 mmol/L (22.0-26.0); PCO2 44.2 mmHg (35.0-45.0); PO2 89.3 mmHg (80.0-100.0); sO2 95.7 % (92.0-98.0)
[2019-01-10 13:15] LABS: pH 7.269 (7.360-7.450)
[2019-01-10 15:30] VITALS: BP 132/39
[2019-01-10 19:43] VITALS: BP 146/46
[2019-01-11 04:20] VITALS: BP 112/60
--- NOTE | 2019-01-11 04:51 | NUR ---
Pt. rested quietly at intervals during the night when checked on during frquent rounds. She offers no c/o pain. Having numerous loose stools during the shift. Shilpa care given multiple times. Contact isolation pre- cautions taken. Bed alarm is on.
[2019-01-11 05:20] LABS: HEMATOCRIT 28.8 % (37.0-47.0); HEMOGLOBIN 9.3 gm/dL (12.0-15.0); MCH 29.4 pg (26.0-34.0); MCHC 32.3 g/dL (28.0-37.0); MCV 91.1 fL (80.0-100.0); RBC 3.16 mil/uL (4.20-5.00); RDW 16.4 % (10.5-14.5)
[2019-01-11 05:32] LABS: CALCIUM 7.1 mg/dL (8.5-10.1); POTASSIUM 3.4 mmol/L (3.5-5.1)
[2019-01-11 08:10] VITALS: BP 127/53
--- NOTE | 2019-01-11 10:13 | H ---
[facility] [place] [address] HISTORY AND PHYSICAL Name: TORREY GARAY Aixa Room #: 454-P [facility] IN M.R.#: [id number] Admission: 01/09/19 ������������������ Attend Phys: Judy Mckeon Discharge: ������������������ Date of : 35 Report #: [id number] THIS REPORT FOR: //name// CC: Hebert Gore DATE OF SERVICE: 01/09/2019 CHIEF COMPLAINT: Weakness. HISTORY OF PRESENT ILLNESS: The patient is an 84-year-old female who came into the Emergency Room with generalized weakness. She is noted to have some increased somnolence and muscle twitching along with back pain. Family says she had 2 falls yesterday and has had some diarrhea. There has been no report of fevers. She denies abdominal pain. PAST MEDICAL HISTORY: COPD, O2 dependent 5 liters; rheumatoid arthritis, history of T-spine kyphoplasty for vertebral compression fracture. PAST SURGICAL HISTORY: Unknown. FAMILY HISTORY: Noncontributory. SOCIAL HISTORY: She lives at home with supportive family. Prior tobacco history. No chronic alcohol history. ALLERGIES: SULFA. MEDICATIONS: Zoloft, Arava, prednisone, gabapentin, oxycodone. REVIEW OF SYSTEMS: Denies headache, chest pain, shortness of breath, dysuria, myalgias, syncope. OBJECTIVE: VITAL SIGNS: Temperature 36.9, pulse 99, respirations 18, blood pressure 119/52, O2 sat 97% on nasal cannula oxygen. GENERAL: She is awake, drowsy, but is able to communicate basic needs. HEAD AND NECK: Unremarkable. LUNGS: Clear, distant breath sounds. HEART: Regular, no murmur. ABDOMEN: Protuberant, soft, scattered bowel sounds. No rebound or guarding. EXTREMITIES: No cyanosis, clubbing or edema. She has ecchymoses on the lower legs. NEUROLOGIC: She moves all extremities. She does have a myoclonic jerking tremor of the extremities. LABORATORY DATA: White count was 41. Creatinine is down to 1.9. Electrolytes [address] [address] HISTORY AND PHYSICAL Name: TORREY GARAY Aixa Room #: 454-P [facility] IN ..#: [id number] Admission: 01/09/19 ������������������ Attend Phys: Judy Mckeon Discharge: ������������������ Date of : 35 Report #: [id number] are stable. ABG from the ER had a pH of 7.29, pCO2 of 49. ASSESSMENT: 1. Leukocytosis. 2. Diarrhea, possible Clostridium difficile infection. 3. Acute hypercapnic respiratory failure. 4. Chronic obstructive pulmonary disease. 5. Acute kidney injury. 6. Severe protein-calorie malnutrition, albumin 1.9. PLAN: She has received oral vancomycin overnight, but I add IV Flagyl given the elevated white count. I think her myoclonic tremors are metabolic in nature, but could be related to underlying hypercapnia. Follow up ABG has been requested. Also, a CT of the abdomen has been ordered to assess degree of colitis. ��������������������������������������������� <ELECTRONICALLY SIGNED> ���������������������������������������� By: Adrián Mason MD ��������������������������������������������� 01/11/19 1013 1257 1315 Adrián Mason MD /nt
--- NOTE | 2019-01-11 14:30 | NUR ---
on-going assessment: 5n saw patient and can accept her for admission at discharge. cm met with patient at bedside to discuss and she is agreeable. pt continues to be on iv anbx and clears at this time. possible discharge soon to 5n. CM LEFT A VM FOR PATIENTS WELL DAUGHTER.
[2019-01-11 16:46] VITALS: BP 135/41
--- NOTE | 2019-01-11 16:58 | HC ---
[facility] [place] [address] CONSULTATION Name: TORREY GARAY Aixa Room #: 454-P ADM IN M.R.#: [id number] Admission: 01/09/19 ������������������ Attend Phys: Judy Mckeon Discharge: ������������������ Date of : 35 Report #: [id number] THIS REPORT FOR: //name// CC: Hebert Gore DATE OF SERVICE: 01/10/2019 INFECTIOUS DISEASE CONSULTATION REASON FOR CONSULTATION: Evaluate possible C difficile colitis. HISTORY OF PRESENT ILLNESS: The patient is an 84-year-old who presents on 01/09/2019 from the Emergency Room with increased somnolence, muscle twitching, back pain, diarrhea. She has had 2 falls. The patient was unable to give much detail. Does report having diarrhea. Denied any cough or sputum production. Denied any chest pain. Denied any nausea or vomiting. She stated her appetite was poor. No dysuria or frequency. REVIEW OF SYSTEMS: Ten point review of systems was otherwise negative other than what has been described above. ALLERGIES: SULFA. MEDICATIONS: As noted on her MAR including prednisone and now on vancomycin and metronidazole. PAST MEDICAL HISTORY: COPD, oxygen dependent, rheumatoid arthritis, on steroids, T-spine kyphoplasty for compression fractures. FAMILY HISTORY: Noncontributory. SOCIAL HISTORY: Recently , past smoker with no significant alcohol intake. PHYSICAL EXAMINATION: VITAL SIGNS: Afebrile with pulse of 99, respiratory rate 18, blood pressure 119/52. GENERAL: She was alert and she was cooperative, although very weak and had intermittent myoclonic jerks. HEENT: Eyes: Without scleral icterus. Mouth: Without mucositis. NECK: Supple. SKIN: With multiple areas of ecchymosis. She has very thin skin typical for chronic steroid use. No palpable adenopathy. CHEST: Consolidation in the right mid chest posteriorly. HEART: Regular, without murmur, gallop or rub. ABDOMEN: Mildly protuberant, nontender, no hepatosplenomegaly or mass [address] [address] CONSULTATION Name: TORREY GARAY Aixa Room #: [facility] IN [facility].#: [id number] Admission: 01/09/19 ������������������ Attend Phys: Judy Mckeon Discharge: ������������������ Date of : 35 Report #: [id number] appreciated. She had mild tenderness mostly in the lower abdomen. EXTERNAL GENITALIA: Unremarkable with no lesions. RECTAL: Not performed. EXTREMITIES: No cyanosis, clubbing or edema. NEUROLOGIC: Cranial nerves intact. Strength in the upper and lower extremities, generalized weakness but was symmetric and she had myoclonic twitching throughout. LABORATORY AND DIAGNOSTIC STUDIES: CT scan of the abdomen and pelvis: Thickening of the ascending, transverse, and descending, sigmoid colon consistent with colitis, moderate right pleural effusion. On 2 liters, her ABG showed a pO2 of 89, pCO2 of 44, pH 7.26. Hemoglobin 10.4, white count 29.2, platelet count 315,000. Creatinine 1.9. CT of the head, no acute change. Chest x-ray, basilar atelectasis with effusion. Urinalysis unremarkable. IMPRESSION: An 84-year-old with: 1. Clostridium difficile colitis suspected with diffuse colitis. Typically ischemic colitis would be segmental. It is noted that she had a negative C. difficile by PCR in 2018, but I am currently awaiting repeat testing today. In addition, the patient has acute renal injury. 2. Myoclonus. Toxic metabolic reaction. RECOMMENDATIONS: We will continue current antibiotic program with vancomycin and metronidazole. Check stool for C. difficile by PCR. Continue with contact precautions. Follow CBC closely. Maintain hydration and nutrition. ��������������������������������������������� <ELECTRONICALLY SIGNED> ���������������������������������������� By: Bonilla Gore MD ��������������������������������������������� 01/11/19 1658 1620 0037 Bonilla Gore MD /nt
--- NOTE | 2019-01-11 19:57 | NUR ---
PATIENT SLEPT MOST OF THE DAY. TREMORS NOTED. UP TO BSC X 2 WITH MODERATE ASSIST. INCONTINENT AT TIMES. TOOK MEDS WITHOUT DIFFICULTY. IV ANTIBIOTICS CONTINUED ORDERED. SKIN VERY BRUISED ON ARMS AND LEGS. VERY THIN PREDNISONE SKIN. SAT UP IN CHAIR FOR A COUPLE OF HOURS THIS AM. FALL PRECAUTIONS IN PLACE. HAS REFUSED TO DRINK CLEAR LIQUIDS. DID TAKE A COUPLE OF SIPS OF WATER AND LIQUID BREEZE.
[2019-01-11 20:18] VITALS: BP 125/45
[2019-01-12 03:12] VITALS: BP 134/53
[2019-01-12 05:43] LABS: HEMATOCRIT 28.2 % (37.0-47.0); HEMOGLOBIN 9.4 gm/dL (12.0-15.0); MCH 30.5 pg (26.0-34.0); MCHC 33.4 g/dL (28.0-37.0); MCV 91.4 fL (80.0-100.0); RBC 3.08 mil/uL (4.20-5.00); RDW 16.4 % (10.5-14.5); WBC 12.7 thou/uL (4.0-11.0)
[2019-01-12 06:06] LABS: CALCIUM 7.2 mg/dL (8.5-10.1); CREATININE 0.7 mg/dL (0.6-1.0); POTASSIUM 3.7 mmol/L (3.5-5.1)
--- NOTE | 2019-01-12 07:55 | NUR ---
progress pt alert and awake had 3 to 4 loose stools, incontinent at time d/t urgency. iv antibiotics given as ordered, pop vanco given, ivf's infusing as ordered up with 1 gb, walker. continue plan of care.
[2019-01-12 08:00] VITALS: BP 132/52
[2019-01-12 15:00] VITALS: BP 138/56
--- NOTE | 2019-01-12 17:51 | NUR ---
VSS-AFEBRILE. LUNGS DIMINISHED IN ALL SALDANA BILATERALLY-REMAINS ON 5LNC. GENERALIZED WEAKNESS, SAT UP IN CHAIR FOR 2 HOURS THIS AFTERNOON. MULTIPLE EPISODES OF FECAL INCONTINENCE, RECTUM IS SORE. PARTIAL RELIEF NOTED WITH PRESCRIBED ORAL PAIN MEDICATION. VERY POOR APPETITE, EDUCATED ON IMPORTANCE OF TAKING IN FLUIDS, VERBALIZED UNDERSTANDING. MULTIPLE PARTIAL BATHS AND LINEN CHANGES DUE TO UNCONTROLLED INCONTINENCE. WILL MONITOR.
[2019-01-12 19:58] VITALS: BP 148/68
--- NOTE | 2019-01-13 08:03 | NUR ---
PROGRESS PT ALERT BUT SOMEWHAT CONFUSED, HAD 4 LOOS INCONTINENT STOOLS AND INCONTINENT OF URINE ALSO. IVF'S CONTINUE IV ANTIBIOTICS CONTINE, PERICARE AND BED CHANGES WITH EACH STOOL PERIAREA TENDER SLIGHTLY RED BUT NO OPEN AREAS NOTED BARRIER CREAM APPLIED LIBERALLY. PT RESPOSITONED SELF LIKES TO LAY ON HER SIDE, C/O OF BEING COLD WARM BLANKETS PROVIDED. CONTINUE POC.
[2019-01-13 08:20] VITALS: BP 125/64
--- NOTE | 2019-01-13 12:37 | NUR ---
ON-GOING ASSESSMENT: PT IS SLOWLY PROGRESSING TOWARDS DISCHARGE GOALS. THEY ARE ADVANCING PATIENTS DIET. [facility] IS FOLLOWING AND CAN ACCEPT PATIENT ONCE MEDICALLY STABLE.
[2019-01-13 12:43] LABS: HEMOGLOBIN 11.3 gm/dL (12.0-15.0); MCH 29.9 pg (26.0-34.0); MCHC 33.3 g/dL (28.0-37.0); MCV 89.9 fL (80.0-100.0); RBC 3.79 mil/uL (4.20-5.00); RDW 16.2 % (10.5-14.5); WBC 10.5 thou/uL (4.0-11.0)
[2019-01-13 12:47] VITALS: BP 130/48
[2019-01-13 12:50] LABS: CALCIUM 7.5 mg/dL (8.5-10.1); CREATININE 0.4 mg/dL (0.6-1.0); POTASSIUM 3.8 mmol/L (3.5-5.1)
[2019-01-13 16:19] VITALS: BP 125/82
--- NOTE | 2019-01-13 16:19 | NUR ---
ASSUMED PATIENT CARE AT 0715. A&OX1-2. PATIENT SEEMS VERY DEPRESSED. INCONTINENT OF STOOL MULTIPLE TIMES. REFUSING ANYTHING TO EAT OR DRINK. PATIENT ALMOST REFUSED ORAL VANC. THIS NURSE HAD TO EXPLAIN SEVERAL TIMES THE IMPORTANCE OF THIS MEDICATION. UP X1 WITH GB. ST ON MONITOR WILL JUMP UP TO THE 150'S WITH ACTIVITY. PATIENT SAT UP IN CHAIR FOR A VERY SHORT PERIOD OF TIME TODAY. PATIENT YELLING "HELP ME" WHILE UP TO THE CHAIR. DAUGHTER VISITED AND IS CONCERNED WITH PATIENT STATUS. DAUGHTER STATED "IT SEEMS LIKE THEY ARE JUST GIVING UP". BED ALARM ON. TRYING TO PUSH LIQUIDS AND FOOD. NOT PROGRESSING TOWARDS GOALS.
[2019-01-13 19:39] VITALS: BP 130/59
[2019-01-14 04:24] LABS: CALCIUM 7.6 mg/dL (8.5-10.1); CREATININE 0.7 mg/dL (0.6-1.0); POTASSIUM 3.8 mmol/L (3.5-5.1)
[2019-01-14 04:42] LABS: HEMATOCRIT 37.5 % (37.0-47.0); HEMOGLOBIN 12.3 gm/dL (12.0-15.0); MCH 29.8 pg (26.0-34.0); MCHC 32.7 g/dL (28.0-37.0); MCV 91.1 fL (80.0-100.0); RBC 4.12 mil/uL (4.20-5.00); RDW 16.4 % (10.5-14.5); WBC 11.6 thou/uL (4.0-11.0)
--- NOTE | 2019-01-14 04:50 | NUR ---
Pt. c/o of her buttocks hurting last evening and was restless. Asked pt. if she wanted some pain meds and she replied yes. When this nurse came back with her pain meds and attempted to given them to her she refused. Pt. saying I do not want those sternly. Then, later on she was in pain and po pain meds offered agaiin and she took them. (see emar). Attempted to encourage po fluids, but pt. only taking sips. Incontinent of urine and stool and orion care given. Bed alarm on.
[2019-01-14 05:11] VITALS: BP 142/74
[2019-01-14 05:20] VITALS: BP 14/74
[2019-01-14 08:35] VITALS: BP 128/69
[2019-01-14 08:44] VITALS: BP 128/64
--- NOTE | 2019-01-14 12:40 | NUR ---
ASSUMED PATIENT CARE AT 0715. A&OX1. PATIENT STILL REFUSING TO EAT AND DRINK. FLUIDS RESTARTED TODAY. IT IS SOMEWHAT DIFFICULT TO TALK PATIENT INTO TAKING MEDICATIONS, ESPECIALLY THE ORAL VANC FOR THE CDIFF. DOCTOR DISCUSSED SITUATION WITH FAMILY. PATIENT NOT PROGRESSING TOWARDS GOALS.
--- NOTE | 2019-01-14 15:15 | NUR ---
ON-GOING ASSESSMENT: CM REVIEWED CHART AND SPOKE WITH ATTENDING. PT IS NOT MEDICALLY READY FOR REHAB. WILL SEE HOW PATIENT PROGRESSESS THROUGH THE WEEKEND IF SHE DOES NOT IMPROVE FAMILY MAY CONSIDER PALLIATIVE CARE. NO PLANS FOR WEEKEND DISCHARGE. CM WILL CONTINUE TO FOLLOW.
[2019-01-14 16:00] VITALS: BP 133/63
[2019-01-14 19:53] VITALS: BP 127/67
--- NOTE | 2019-01-15 02:59 | NUR ---
ASSUMED CARE 1900. AXOX2. RESTING IN BED. IV ATB WITH IVF. NO S/S ACUTE DISTRESS NOTED OR REPORTED AT THIS TIME. WILL CONT TO MONITOR FOR ANY CHANGES IN CONDITION.
[2019-01-15 04:05] LABS: HEMATOCRIT 35.2 % (37.0-47.0); HEMOGLOBIN 11.5 gm/dL (12.0-15.0); MCH 29.6 pg (26.0-34.0); MCHC 32.6 g/dL (28.0-37.0); MCV 90.9 fL (80.0-100.0); RBC 3.87 mil/uL (4.20-5.00); RDW 16.7 % (10.5-14.5); WBC 11.3 thou/uL (4.0-11.0)
[2019-01-15 04:19] LABS: CALCIUM 7.2 mg/dL (8.5-10.1); CREATININE 0.6 mg/dL (0.6-1.0); POTASSIUM 3.5 mmol/L (3.5-5.1)
[2019-01-15 04:49] VITALS: BP 121/57
[2019-01-15 08:03] VITALS: BP 146/77
[2019-01-15 08:12] VITALS: BP 146/77
[2019-01-15 15:40] VITALS: BP 131/69
[2019-01-15 18:46] VITALS: BP 151/68
--- NOTE | 2019-01-15 19:14 | NUR ---
VSS-AFEBRILE. REMAINS ON 5LNC. VERY FLAT AFFECT, APPEARS TO BE DEPRESSED, EVIDENCED BY NOT WANTING TO EAT, DRINK, OR PARTICPATE IN ANY ADL'S. REFUSES THERAPIES, REFUSES TO GET UP INTO CHAIR DURING SHIFT. 2 WATERY STOOLS DURING SHIFT. COMPLETE BATH AND LINEN CHANGE, MASSAGE LOWER EXTREMITIES FOR COMFORT. WAS ABLE TO COAX INTO TAKING ORAL VANCOMYCIN, ALL OTHER FLUIDS WERE SPIT OUT.
--- NOTE | 2019-01-16 02:02 | NUR ---
ASSUMED CARE AT 1900. AXOX2. ISO FOR ACTIVE C.DIFF. TOLERATED MEDS WELL. NO S/S ACUTE DISTRESS NOTED OR REPORTED AT THIS TIME. WILL CONT TO MONITOR FOR ANY CHANGES IN CONDITION.
[2019-01-16 03:46] VITALS: BP 126/68
[2019-01-16 08:32] VITALS: BP 136/66
--- NOTE | 2019-01-16 13:38 | NUR ---
Assumed pt care this am, still on 4L of O2 via NC. Pt seems to be confused and depresses at the same time. Pt would refuse to eat, drink or participate in any ADL's. Pt also refused to get up from the bed to sit on the recliner or to walk. I was able to coax the pt to drink some of the chocolate ensure along with her oral medications, small bites of pudding and cheesecake was also taken in. Will encourage to eat and drink more. POC followed
[2019-01-16 15:33] VITALS: BP 133/55
[2019-01-16 20:40] VITALS: BP 145/58
[2019-01-17 04:50] VITALS: BP 118/61
[2019-01-17 05:46] LABS: CALCIUM 6.9 mg/dL (8.5-10.1); CREATININE 0.5 mg/dL (0.6-1.0); POTASSIUM 3.2 mmol/L (3.5-5.1)
[2019-01-17 05:52] LABS: HEMATOCRIT 32.2 % (37.0-47.0); HEMOGLOBIN 10.4 gm/dL (12.0-15.0); MCH 29.6 pg (26.0-34.0); MCHC 32.2 g/dL (28.0-37.0); MCV 91.9 fL (80.0-100.0); RBC 3.5 mil/uL (4.20-5.00); WBC 11.6 thou/uL (4.0-11.0)
--- NOTE | 2019-01-17 06:13 | NUR ---
Pt. rested quietly at intervals during the day when checked on during frequent rounds. She c/o buttocks pain and was given po pain meds (see emar) with re- lief noted. Continues to have brown colored loose stools with a moderate amount of blood absorb in the dry absorb pad this am. Hgb at 10.4 this am. Bed alarm is on.
[2019-01-17 08:01] VITALS: BP 127/50
--- NOTE | 2019-01-17 12:00 | NUR ---
THERAPY REPORTING THAT PATIENT WOULD NOT BE ABLE TO TOLERATE THE 3 HOURS OF THERAPY A DAY THAT IS REQUIRED BY MEDICARE GUIDLINES FOR ACUTE REHAB. MANUFACTURING ASSOCIATE IN FORMED.
--- NOTE | 2019-01-17 14:10 | NUR ---
Po intake <10% x1 week. Ensure Enlive ordered between meals and minimal intake reported. Nsg notes report little to no po intake as well. Recommend Mirtazapine for appetite stimulant.
--- NOTE | 2019-01-17 15:50 | NUR ---
5[facility] INDICATED THAT PT WOULD BE MORE APPROPRIATE FOR SKILLED REHAB STAY. CM DISCUSSED THIS WITH PT AND SHE INDICATED SHE WAS RECEPTIVE FOR REFERRAL BEING SENT TO [facility] FOR REVIEW FOR POSSIBLE ADMISSION. CM SPOKE WITH HER DTR AND SHE WAS AGREEABLE WELL. DC DIVISION TRAFFIC SUPERINTENDENT TO SEND REFERRAL. CM TO FOLLOW INDICATED WITH POSSIBLE DC TOMORROW.
--- NOTE | 2019-01-17 16:06 | NUR ---
DP sent new referral to [facility] for patient for possible short term skilled stay, patient to dc tomorrow. DP contacted admissions at [facility] to let them know to expect referral.
[2019-01-17 16:53] VITALS: BP 111/43
[2019-01-17 20:13] VITALS: BP 122/74
--- NOTE | 2019-01-17 20:16 | NUR ---
Pt still refuses to eat and would only take small sips of her chocolate ensure drink. Pt also refused some her medication as indicated on the emar. All IV medication was given. Still has watery brownishred stools, informed Dr. Mason when he came to see the pt. Pt worked wioth PT and stood up and took 2 steps, as per PT pt will not thrive in rehab here. POC followed, encouraged pt to drink the ensure, would go in the room often for her to take some sips. Total food intake would be 1 table spoon of solids and half a bottle of ensure. POC followed
[2019-01-18 04:00] VITALS: BP 132/72
--- NOTE | 2019-01-18 04:32 | NUR ---
Pt. rested quietly at intervals during the night when checked on during frequent rounds. She did take her meds, but does not take po fluids that well. Will continue to encourage po. Having loose stools with tint of re blood noticeable. She offers no complaints of pain. Turned and repostioned frequently. Bed alarm is on.
[2019-01-18 09:19] VITALS: BP 128/68
[2019-01-18 16:33] VITALS: BP 128/67
[2019-01-18 19:40] VITALS: BP 136/61
[2019-01-19 03:02] VITALS: BP 136/69
--- NOTE | 2019-01-19 03:53 | NUR ---
Pt. rested quietly at intervals during the night when checked on during frequent rounds. No noted blood from rectum or stool. She offers no com- plaints. Does not take po very well and needs much encouragement to take meds. Will refuse them at times (see emar). Bed alarm is on.
[2019-01-19 06:41] LABS: HEMATOCRIT 30.6 % (37.0-47.0); HEMOGLOBIN 10.1 gm/dL (12.0-15.0); MCH 30.8 pg (26.0-34.0); MCHC 32.9 g/dL (28.0-37.0); MCV 93.5 fL (80.0-100.0); PLATELET COUNT 346 thou/uL (150-400); RBC 3.27 mil/uL (4.20-5.00); RDW 17.1 % (10.5-14.5); WBC 9.7 thou/uL (4.0-11.0)
[2019-01-19 07:03] LABS: CALCIUM 7.5 mg/dL (8.5-10.1); CREATININE 0.6 mg/dL (0.6-1.0); POTASSIUM 3.1 mmol/L (3.5-5.1)
[2019-01-19 08:05] VITALS: BP 120/64
[2019-01-19 08:09] LABS: ABSOLUTE NEUTROPHILS 6.9 thou/uL (1.4-8.2); METAMYELOCYTES 3 %; MYELOCYTES 1 %
[2019-01-19 08:10] LABS: ANISOCYTOSIS 1+; OVALOCYTES 1+
--- NOTE | 2019-01-19 12:48 | NUR ---
Pt has had negligible intake x1 week. EMR and nsg report pt is very weak and depressed. Diagnosed with severe PCM. Recommend initiate Clinimix PPN to run at 50 mL/hr and 250 mL 20% lipid daily until adequate intake resumes.
--- NOTE | 2019-01-19 13:12 | NUR ---
TOWARDS POC PT A/O X2, COOPERATIVE, VSS, AFEBRILE, DENIES PAIN, REDNESS ON BUTTOCKS NOTED, BARRIED CREAM APPLIED. REMAINED ON 4L O2, ISO MAINTAINED. PT HAD 2 LARGE LOOSE BM AT THIS MOMENT. WILL START BOWEL PREP TODAY FOR COLOSCOPY TOMORROW.
[2019-01-19 14:34] VITALS: BP 138/74
--- NOTE | 2019-01-19 18:31 | HC ---
[facility] [place] [address] CONSULTATION Name: TORREY GARAY Aixa Room #: 454-P ADM IN M.R.#: [id number] Admission: 01/09/19 ������������������ Attend Phys: Judy Mckeon Discharge: ������������������ Date of : 35 Report #: [id number] THIS REPORT FOR: //name// CC: Hebert Gore TYPE OF REPORT: Pulmonary consultation. REFERRING PHYSICIAN: Dr. Hebert Gore. REASON FOR REFERRAL: Interstitial lung disease. HISTORY OF PRESENT ILLNESS: The patient is an 84-year-old white female who presents to the ED with generalized weakness. She is felt to have C. difficile colitis. With a history of interstitial lung disease, a pulmonary consultation was requested. The patient has not been seen for the last couple of years. She was last seen around April 2016. She has known interstitial lung disease related to rheumatoid arthritis. She has done fairly well. We were able to manage to get off the corticosteroids. She has been doing fairly well until more recently she has been battling recurrent C. difficile colitis. She presents on this occasion with weakness, , persistent muscles twitching, somnolence, back pain. She also notes that her diarrhea may be returned. Otherwise, denies any fever, night sweats or chills, chest pain or productive cough. 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 ALLERGIES: SULFA, which cause a rash. She is also allergic to SHELLFISH, which causes severe nausea and vomiting. HOME MEDICATIONS: Reviewed that includes iron supplements, oxycodone, acetaminophen, gabapentin and prednisone 10 mg every day. FAMILY HISTORY: Noncontributory. SOCIAL HISTORY: The patient has smoked but quit many years ago. She drinks [facility] [place] [address] CONSULTATION Name: TANISHATORREY N Room #: 454-P [facility] IN ..#: [id number] Admission: 01/09/19 ������������������ Attend Phys: Judy Mckeon Discharge: ������������������ Date of : 35 Report #: [id number] occasional alcohol. REVIEW OF SYSTEMS: As mentioned above, otherwise 10-point system review negative. PHYSICAL EXAMINATION: GENERAL: She is awake and alert, in no distress. VITAL SIGNS: Temperature 98 degrees, pulse of 100, respiratory rate is 20, blood pressure mmHg and oxygen saturation 97%. HEENT: Normocephalic and atraumatic. NECK: Supple, without any lymphadenopathy or thyromegaly. CHEST: Breath sounds are fair. Few scattered crackles in both lung tapia. Otherwise, no wheezes. CARDIOVASCULAR: Normal S1 and S2. There are no murmurs or gallop. There is no JVD. There is no carotid bruit. Pulses are 2+/4+ bilaterally. ABDOMEN: Soft and nontender. No organomegaly or masses felt. GENITOURINARY: Deferred. RECTAL: Deferred. EXTREMITIES: No cyanosis, clubbing or edema. RADIOLOGICAL DATA: Portable chest x-ray shows mild chronic bilateral interstitial changes. Otherwise, no new findings. Thoracic spine shows vertebroplasties at T7, multiple lower thoracic compression deformities. CT head was negative for any acute process. CT abdomen and pelvis shows a reduced left femoral neck fracture, thickening of the ascending colon, transverse colon, descending colon consistent with chronic C. difficile colitis, moderate right-sided pleural effusion, small left-sided pleural effusion. LABORATORY DATA: WBC 41,300; hemoglobin 10.7 and platelets are normal and 13% bandemia. Arterial blood gas revealed pH 7.29, pCO2 of 49 and pO2 129 on 5 liters of O2. Albumin 1.1. Sodium 132, potassium 3.9, chloride 96, CO2 of 27, BUN is 46 and creatinine is 2.4. Liver enzymes are mildly abnormal. IMPRESSION: 1. 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 2. Chronic obstructive pulmonary disease, on chronic O2 without obvious exacerbation. 3. 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 4. Acute kidney injury/chronic kidney disease. 5. Acute respiratory acidosis. 6. Generalized debility and weakness. 7. Osteoporosis with multiple compression fractures, status post multiple vertebroplasties. 8. Gastroesophageal reflux disease. 9. Progressive weakness and debility. [address] [address] CONSULTATION Name: TORREY GARAY Aixa Room #: 454-P [facility] IN M.R.#: [id number] Admission: 01/09/19 ������������������ Attend Phys: Judy Mckeon Discharge: ������������������ Date of : 35 Report #: [id number] RECOMMENDATIONS: Continue O2, bronchodilators, she is already on chronic steroids. DVT and GI prophylaxis recommended. Thank you for this consultation. ��������������������������������������������� <ELECTRONICALLY SIGNED> ���������������������������������������� By: Alex Reis MD ��������������������������������������������� 01/19/19 1831 2040 0552 Alex Reis MD /nt
[2019-01-19 19:58] VITALS: BP 139/77
--- NOTE | 2019-01-20 02:47 | NUR ---
Assumed care at 1845. Pt resting in bed. She has been NPO since midnight and taking bowel prep. She has been refusing to drink for the most part and bowels are not clear as of yet. For her schedule colonoscopy. No identified needs at the moment. Will continue to monitor.
[2019-01-20 03:52] VITALS: BP 152/81
--- NOTE | 2019-01-20 05:23 | HC ---
[facility] [place] [address] CONSULTATION Name: TORREY GARAY Aixa Room #: 454-P ADM IN M.R.#: [id number] Admission: 01/09/19 ������������������ Attend Phys: Judy Mckeon Discharge: ������������������ Date of : 35 Report #: [id number] THIS REPORT FOR: //name// CC: PEDRO LIZARRAGA [facility] Purvi TOVAR MD DATE OF SERVICE: 01/19/2019 PATIENT OF: Dr. Reinaldo Lizarraga. CHIEF COMPLAINT: This is a very pleasant 84-year-old female who I am asked to evaluate for possible etiologies of recent onset of hematochezia that consists of red-tinged brownish stool. The patient is in the hospital with C. diff colitis, is not responding as it should to antibiotic therapy. She is also on Arava and this can cause diarrhea in about 10-15% of patients. I am asked to see her because of the recent onset of blood-tinged brown stool. Per nurses, the stools are still loose, but are not nearly as watery as they have been and the patient has been on oral therapy consisting of vancomycin p.o. for 9 days now. She is also complaining of some perirectal pain. Her appetite has been poor. She has been losing weight, although she does not know how much she has lost. She used to weigh 137 pounds. I will ask for a weight while she is here in the hospital. PAST MEDICAL HISTORY: Significant for rheumatoid arthritis, COPD. She had a history of diffuse colitis of the ascending colon last year of uncertain etiology. This was found on biopsies of the ascending colon. She has a history of vertebral compression fracture, depression and protein calorie malnutrition. She also may have a history of iron deficiency anemia as she has been taking iron supplements. PAST SURGICAL HISTORY: Significant for two sections and she has tonsillectomy and adenoidectomy. ALLERGIES: SULFA. MEDICATIONS: Prior to admission included acetaminophen, gabapentin, iron, Arava, oxycodone, prednisone, and sertraline. Here in the hospital, she is on oral vancomycin 500 mg q. 6, ipratropium and albuterol inhaler, prednisone 10 mg a day, heparin subQ every 8 hours, sertraline 100 mg at bedtime, metronidazole 500 mg IV piggyback q. 6 hours, acetaminophen and oxycodone IR. SOCIAL HISTORY: She does not smoke. She does not drink [place] [address] CONSULTATION Name: TORREY GARAY Room #: 454-P [facility] [place] ..#: [id number] Admission: 01/09/19 ������������������ Attend Phys: Judy Mckeon Discharge: ������������������ Date of : 35 Report #: [id number] She used to smoke in the past and apparently had a 40-pack year history of smoking. FAMILY HISTORY: Negative for colon polyps, colon cancer, Crohn's disease and ulcerative colitis. REVIEW OF SYSTEMS: She denies any dysphagia, odynophagia, gastroesophageal reflux, hiatal hernia or peptic ulcer disease. She said her appetite has been decreased and her weight has been decreasing, but she does not quantify it. She says she used to weigh 137 pounds, but does not know what she weighs now. She denies any hematemesis or melena, but she has had some blood mixed in with her brown stool. She denies any diarrhea or constipation. She denies any abdominal pain, nausea or vomiting. She has no history of jaundice, hepatitis, cholelithiasis, cholecystitis or pancreatitis. She does complain of pain in the perirectal area that has been there for a while. She has a history of hemorrhoids. PHYSICAL EXAMINATION: GENERAL: Reveals a well-developed, marginally nourished 84-year-old white female who is in no obvious distress at the time of the examination who is awake, alert, oriented x 4 and cooperative and pleasant to converse with. She appears very frail and weak. HEENT: She is normocephalic, atraumatic and anicteric. HEART: Rate and rhythm are regular. LUNGS: Clear bilaterally. ABDOMEN: Soft. Bowel sounds are present in all 4 quadrants. She is diffusely tender to palpation. There is no rebound or guarding. EXTREMITIES: Warm and dry. No peripheral cyanosis, clubbing or edema. NEUROLOGIC: She appears grossly intact without lateralizing signs, but I did not test her extensively neurologically as she is fairly motion less lying in bed. LABORATORY DATA: As far as her chem profile, her potassium is low at 3.1, glucose is 111, calcium is 7.5, but other than that, everything is normal. Previous chem profile did not show any liver enzyme elevation. Hemoglobin is low at 10.1 with normal indices with an RDW of 17.1, white count 9.7, platelets 346,000. KUB of the abdomen revealed no free air, no ileus or obstruction. No definite renal or ureteral stones, degenerative changes of the lumbar spine, femoral neck screw and intramedullary radha in the left femur shaft. CT of the abdomen and pelvis that was done on admission showed left femoral neck fracture reduced with femoral neck compression screw and intramedullary radha, marked thickening of the ascending colon, transverse colon, descending colon and sigmoid colon consistent with her history of C. difficile colitis. This thickening was new from the prior study and development of right pleural effusion with very small left pleural effusion. She appears to have a T7 vertebroplasty with multiple lower thoracic compression deformities. CT of the [facility] [address] [place] [address] CONSULTATION Name: TORREY GARAY Aixa Room #: 454-P ADM IN M.R.#: [id number] Admission: 01/09/19 ������������������ Attend Phys: Judy Mckeon Discharge: ������������������ Date of : 35 Report #: [id number] head showed diffuse moderate cerebral atrophy compatible with advanced age. There was nothing for an acute cerebral hemorrhage or infarction, mild chronic deep white matter encephalomalacia, the calvarium appears intact. IMPRESSION: 1. Clostridium difficile colitis, not responding to treatment as expected. The patient is also on Arava and this can cause diarrhea in 10-15% of patients. 2. Perirectal pain per patient. 3. Recent onset of blood-tinged stool. 4. Poor appetite with weight loss, unquantified. The patient says her normal weight is 137 pounds. We will weigh her while she is here. 5. Rheumatoid arthritis. 6. Chronic obstructive pulmonary disease. 7. History of a diffuse colitis of the ascending colon last year of uncertain etiology. 8. Multiple vertebral compression fractures. 9. Depression. 10. Protein calorie malnutrition. RECOMMENDATIONS: My recommendations are as follows: I would recommend giving her colonoscopy prep today and having her on a clear liquid diet. We will keep her n.p.o. after midnight and obtain a consent for colonoscopy by me and schedule that to be done tomorrow morning. The patient is in agreement with this plan. The patient is very likely to receive a fecal transplant in the near future for a nonresponding C. diff infection. Thank you very much once again for allowing me to participate in her care. ��������������������������������������������� <ELECTRONICALLY SIGNED> ���������������������������������������� By: Lucia Carpenter DO ��������������������������������������������� 01/20/19 0523 [id number] Lucia Carpenter DO /nt
[2019-01-20 06:01] LABS: HEMATOCRIT 29.7 % (37.0-47.0); HEMOGLOBIN 9.8 gm/dL (12.0-15.0); MCH 30.3 pg (26.0-34.0); MCHC 32.9 g/dL (28.0-37.0); MCV 92.2 fL (80.0-100.0); RBC 3.22 mil/uL (4.20-5.00); RDW 16.9 % (10.5-14.5); WBC 9.6 thou/uL (4.0-11.0)
[2019-01-20 06:10] LABS: CALCIUM 7.9 mg/dL (8.5-10.1); CREATININE 0.6 mg/dL (0.6-1.0)
[2019-01-20 06:31] LABS: POTASSIUM 2.7 mmol/L (3.5-5.1)
[2019-01-20 07:46] VITALS: BP 146/72
--- NOTE | 2019-01-20 13:31 | NUR ---
TOWARDS POC PT A/O X1, VSS, AFERBILE, PAIN AND REDNESS NOTED ON THE BUTTOCKS DUE TO DIARRHEA. BARRIER CREAM APPLIED. POTASSIUM REPLACING. PT ON COLONSCOPYH AT THIS MOMENT. ISO MAINTAINED. WILL CONTINUE TO MONITOR.
[2019-01-20 16:28] VITALS: BP 129/68
--- NOTE | 2019-01-20 16:35 | NUR ---
PT TO UNDERGO COLONOSCOPY TODAY. CM CONTINUES TO PROVIDE MAMIE MARTINEZ [place] UPDATES ON PT THEY ARE ABLE TO ACCEPT HER ONCE MEDICALLY STABLE. CM TO FOLLOW INDICATED WITH DC PLANNING.
[2019-01-20 21:26] VITALS: BP 118/58
[2019-01-21 04:58] LABS: HEMATOCRIT 29.5 % (37.0-47.0); HEMOGLOBIN 9.5 gm/dL (12.0-15.0); MCH 30.1 pg (26.0-34.0); MCHC 32.2 g/dL (28.0-37.0); MCV 93.5 fL (80.0-100.0); RBC 3.15 mil/uL (4.20-5.00); RDW 17.4 % (10.5-14.5)
[2019-01-21 05:07] LABS: CALCIUM 7.7 mg/dL (8.5-10.1); CREATININE 0.4 mg/dL (0.6-1.0); POTASSIUM 3.1 mmol/L (3.5-5.1)
[2019-01-21 05:53] VITALS: BP 136/47
--- NOTE | 2019-01-21 07:03 | NUR ---
Assumed care at 1845. Pt resting in bed. Has had 5 episodes of diarrhea. Applied barrier cream to buttocks but the skin is getting more sensitive. She is still on 4L NC. Denies chest pain. No identified needs at the moment. Call light within reach. Will continue to monitor.
[2019-01-21 07:38] VITALS: BP 158/77
--- NOTE | 2019-01-21 12:20 | NUR ---
WOUND CONSULT; ASSESSMENT OF THIS PATIENT REVEALY REDDENED, TENDER ESCORIATION CONSISTANT WITH CONTACT DERMATITIS, RE INCONTINENT X2. RECOMMENDATIONS; 1-ANTIFUNGAL BARRIER CREAM 2-LOW AIR LOSS PUMP (RE;1.9 ALBUMIN) RN PRESENT
[2019-01-21 12:34] LABS: CREATININE 0.6 mg/dL (0.6-1.0); MAGNESIUM 1.1 mg/dL (1.8-2.4); PHOSPHORUS 3.4 mg/dL (2.5-4.9); POTASSIUM 3.4 mmol/L (3.5-5.1); TOTAL BILIRUBIN 0.3 mg/dL (<0.1-1.0); TOTAL PROTEIN 4.6 g/dL (6.4-8.2)
--- NOTE | 2019-01-21 14:39 | NUR ---
VASCULAR ACCESS CONSULTED FOR PICC PLACEMENT FOR TPN /ABX. PT'S LABS,MEDS,HISTORY,ORDER AND CONSENT VERIFIED. PT WAS PREPPED AND DRAPED FOR MAX BARRIER PRECAUTIONS. 1% LIDOCAINE GIVEN SQ IN ANOOP BASILIC, WIDELY PATENT WITH USG. #5FR DL POWER PICC TRIMMED TO 34CM INSERTED TO 2CM EXTERNAL.PICC SECURED AND STAT CXR OBTAINED.
--- NOTE | 2019-01-21 15:03 | NUR ---
PICC RELEASED FOR IMMEDIATE USE PER PROTOCOL TO MARVIN RN CXR CONFIRMED PLACEMENT.
--- NOTE | 2019-01-21 15:11 | NUR ---
CARE TEAM INDICATED THAT PT IS TO HAVE FECAL MANAGEMENT SYSTEM PLACE THIS DAY AND NOC TPN STARTED WELL. THEY INDICATED THAT PT MIGHT BENEFIT FROM LT[facility] UPON DC. CM NOTIFIED BOP AND CALLED PT'S DPOA/STR TO DISCUSS BUT LEFT DTR VM. CARE TEAM INDICATED THEY ANTICIPATE THAT PT WILL LIKELY BE HERE OVER THE WEEKEND. CM TO FOLLOW INDICATED WITH DC PLANNING.
[2019-01-21 15:36] VITALS: BP 136/67
--- NOTE | 2019-01-21 16:06 | PATH ---
[facility] [place] [address] PATHOLOGY RPT PROCEDURE Name: JEWELS WISE Aixa Room #: 454-P ADM IN M.R.#: [id number] ������������������ Admission: 01/09/19 ������������������ Date of : 35 Discharge: Report #: [id number] Path Case #: [id number] [facility] Accession Number: [id number] . 01 Material submitted: . PART A: BX RIGHT COLON/ASCENDING COLON COLITIS PART B: RANDOM BX TRANSVERSE COLON COLITIS PART C: RANDOM BX DESCENDING COLON COLITIS PART D: BX SIGMOID COLITIS . 01 Clinical history: . Pre-OP DX: HX: C Diff colitis, hematochezia Post-OP DX: C Diffcolitis, rule out underlying inflammatory colitis . 02 Diagnosis: A. Large intestine mucosa, right colon/ascending colon colitis, endoscopic biopsy: - Focal moderate active colitis. - Remainder of fragments showing nonspecific reactive changes. - Negative for dysplasia or malignancy. . B. Large intestine mucosa transverse colon colitis, endoscopic biopsy: - Focal moderate active colitis. - Remainder of fragments showing nonspecific reactive changes. - Negative for dysplasia or malignancy. . C. Large intestine mucosa, descending colon colitis, endoscopic biopsy: - Focal moderate active colitis. - Remainder of fragments showing nonspecific reactive changes. - Negative for dysplasia or malignancy. . D. Large intestine mucosa, sigmoid colitis, endoscopic biopsy: - Focal moderate active colitis. - Remainder of fragments showing nonspecific reactive changes. - Negative for dysplasia or malignancy. . 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 02 Comment: Examination shows one fragment amongst all of the sampled fragments designated as "right colon/ascending colon", "transverse colon", "descending colon", and "sigmoid colon". Remainder of fragments appear to show reactive changes with no evidence of active cryptitis. There are no architectural abnormalities present within any of the fragments sampled. The provided history of c-diff colitis is noted. Explosive ulcers or fibrinopurulent material is not present in any of the sampled fragments. [address] [address] PATHOLOGY RPT PROCEDURE Name: JEWELS WISE Room #: 454-P [facility] IN M.R.#: [id number] ������������������ Admission: 01/09/19 ������������������ Date of : 35 Discharge: Report #: [id number] Path Case #: [id number] The differential diagnosis includes resolving c-difficile colitis (without active ulceration), acute diverticulitis, early inflammatory bowel disease especially Crohn's disease, medication-induced colitis, as well as other infectious-type of colitides. Please correlate clinically. 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 02 Electronically signed: . Pat Joyce MD, Pathologist NPI- [id number] . 01 Gross description: . A. Received in formalin labeled "Wise, Jewels, BX R colon/ascending colon colitis," are 4 segments of carrera soft tissue measuring 1.0 x 0.6 x 0.3 cm in aggregate dimensions and ranging from 0.3 to 0.6 cm in maximum dimension. The specimen is submitted entirely in cassette A1. . B. Received in formalin labeled "Wise, Jewels, random BX of transverse colon colitis," is a single segment of carrera soft tissue measuring 0.5 cm in maximum dimension. The specimen is entirely submitted in cassette B1. . C. Received in formalin labeled "Wise, Jewels, random BX descending colon colitis," are 3 segments of carrera soft tissue measuring 0.7 x 0.5 x 0.2 cm in aggregate dimensions and ranging from 0.3 to 0.4 cm in maximum dimension. The specimen is submitted entirely in cassette C1. . D. Received in formalin labeled "Wise, Jewels, BX sigmoid colitis," are 2 segments of carrera soft tissue measuring 0.9 x 0.2 x 0.1 cm in aggregate dimensions and ranging from 0.4 to 0.5 cm in maximum dimension. The specimen is submitted entirely in cassette D1. (TSD; 01/20/2019) TOB/TOB . 02 Pathologist provided ICD-10: K52.9 . 02 CPT . 467623, 506137, 770003, 705660 Specimen Comment: A courtesy copy of this report has been sent to Specimen Comment: [phone], . Specimen Comment: Report sent to / DR LIZARRAGA Performed at: 01 [facility] [address] [place] [address] [address], [place], [place] [id number] MD Bernardino Oliva MD Phone: [phone] Performed at: [address] [id number] [facility] [address] [place] [address] PATHOLOGY RPT PROCEDURE Name: JEWELS WISE Room #: 454-P ADM IN M.R.#: [id number] ������������������ Admission: 01/09/19 ������������������ Date of : 35 Discharge: Report #: [id number] Path Case #: [id number] MD Pat Joyce MD Phone: [phone]
--- NOTE | 2019-01-21 20:04 | NUR ---
QUIET UNEVENTFUL DAY. HAD 2 INCONTINENT DIARRHEA STOOLS. MUCH IMPROVED. MAIN COMPLAINT PERIAREA PAIN. TRIED TO GET A FECAL MANAGEMENT SYSTEM HOWEVER DID NOT GET HERE UNTIL SHIFT CHANGE. CLEANING PERIAREA WITH WOUND CLEANSER AND APPLIED ANTIFUNGAL CREAM. PATIENT REFUSING MEALS. IV TEAM PLACED DL PICC IN LEFT UPPER ARM BASILIC AND PLACEMENT CONFIRMED WITH XRAY. FALL PRECAUTIONS REMAIN IN PLACE. WILL START ON TPN TONIGHT.
[2019-01-21 20:16] VITALS: BP 134/65
--- NOTE | 2019-01-22 04:03 | NUR ---
PATIENT AOX1 CONFUSED AND FORGETFUL.PATIENT TURNED Q 2 HOUR. PATIENT IS ON TPN. PATIENT DENIED PAIN OR DISCOMFORT. PATIENT IS ON FECAL MANAGEMENT. PERICARE AND ANTIFUNGAL CREAM APPLIED NEEDED.NO SHORTNESS OF AIR OR DISTRESS NOTED AT THIS TIME. FALL PRECAUTION IN PLACE PATIENT IN BED ASLEEP AT THIS TIME BREATHING REGULAR AND UNLABOURED.
[2019-01-22 04:06] VITALS: BP 138/70
[2019-01-22 05:32] LABS: ALBUMIN 1.8 g/dL (3.4-5.0); CALCIUM 7.4 mg/dL (8.5-10.1); CREATININE 0.4 mg/dL (0.6-1.0); MAGNESIUM 1.4 mg/dL (1.8-2.4); PHOSPHORUS 2.6 mg/dL (2.5-4.9); TOTAL BILIRUBIN 0.3 mg/dL (<0.1-1.0); TOTAL PROTEIN 4.1 g/dL (6.4-8.2)
[2019-01-22 05:34] LABS: POTASSIUM 2.5 mmol/L (3.5-5.1)
[2019-01-22 07:42] VITALS: BP 140/75
[2019-01-22 13:15] VITALS: BP 110/53
[2019-01-22 13:35] LABS: CALCIUM 7.7 mg/dL (8.5-10.1); CREATININE 0.4 mg/dL (0.6-1.0); POTASSIUM 3.4 mmol/L (3.5-5.1)
--- NOTE | 2019-01-22 17:48 | NUR ---
PT STABLE THROUGHOUT SHIFT. PT ATE A LITTLE LUNCH BUT DID NOT HAVE MUCH APPETITIE. PT C/O PAIN, TREATED WITH MEDICATION. PT RESTING COMFORTABLY.
[2019-01-22 19:17] VITALS: BP 117/60
[2019-01-23 05:30] VITALS: BP 116/67
[2019-01-23 05:32] LABS: CALCIUM 7.5 mg/dL (8.5-10.1); CREATININE 0.5 mg/dL (0.6-1.0); MAGNESIUM 1.8 mg/dL (1.8-2.4)
[2019-01-23 05:36] LABS: POTASSIUM 4.6 mmol/L (3.5-5.1)
[2019-01-23 05:38] VITALS: BP 132/71
[2019-01-23 07:38] VITALS: BP 136/68
--- NOTE | 2019-01-23 08:20 | NUR ---
PROGRESS PT NOT PROGRESSING DIARRHEA CONTINUES FECAL MANAGEMENT SYSTEM IN PLACE, FELL OUT AND REPLACED WITHOUT DIFFICULTY. PT'S PERIAREA EXCORIATED AND SORE CLEANSED GENTLY AND BARRIER CREAM APPLIED. PT VERY WITHDRAWN AND STATED SHE WISHED SHE WAS . GLUCOSE ELEVATED ON LAB DRAW IN 600'S TO NOTIFY DR.CHRIS LIZARRAGA. IVF'S CONTINUE TPN AT 25CC/HR PT TOOK ONE DOSE OF OXYCODONE AND SLEPT FOR MOST OF NIGHT CONTINNUE TO MONITOR
[2019-01-23 14:35] LABS: CALCIUM 7.5 mg/dL (8.5-10.1); CREATININE 0.4 mg/dL (0.6-1.0)
[2019-01-23 14:41] LABS: POTASSIUM 3.2 mmol/L (3.5-5.1)
[2019-01-23 15:45] VITALS: BP 123/63
[2019-01-24 02:33] LABS: ALBUMIN 1.8 g/dL (3.4-5.0); CALCIUM 7.6 mg/dL (8.5-10.1); CREATININE 0.4 mg/dL (0.6-1.0); MAGNESIUM 1.2 mg/dL (1.8-2.4); PHOSPHORUS 2.4 mg/dL (2.5-4.9); POTASSIUM 3.5 mmol/L (3.5-5.1); TOTAL BILIRUBIN 0.2 mg/dL (<0.1-1.0); TOTAL PROTEIN 4.3 g/dL (6.4-8.2)
--- NOTE | 2019-01-24 02:53 | NUR ---
PAIN CONTROLED THIS SHIFT. PATIENT TURNED Q 2 HOURS. PATIENT INCONTINENT PERICARE AND ANTIFUNGAL OINTMENT APPLIED NEEDED. PATIENT CALM AND COOPERATIVE WITH CARE AND MEDS. LAST POTTASSIUM BAG ADMINISTED IV. BLOOD DRAWN AND TAKEN TO LAB. BLE ELEVATED. PATIENT IN BED ASLEEP AT THIS TIME BREATHING REGULAR AND UNLABOURED.
[2019-01-24 03:30] VITALS: BP 127/64
[2019-01-24 08:21] VITALS: BP 110/57
[2019-01-24] MEDS ORDERED: FIRVANQ50 MG/1 ML PO (12:41)
[2019-01-24] MEDS ORDERED: IPRAT-ALBUT 0.5-3 ML INH (12:43)
[2019-01-24] MEDS ORDERED: METRO IV 5500 MG/100 IV (12:43)
[2019-01-24] MEDS ORDERED: NOVOLOG100 UNIT/1 SUBQ (12:44)
[2019-01-24] MEDS ORDERED: PREDNISONE 5 MG5 M1 PO (12:44)
[2019-01-24] MEDS ORDERED: ACIDOPHILUS1 EAC4 PO (12:44)
--- NOTE | 2019-01-24 14:29 | NUR ---
PHYSICIAN INDICATED PT IS MEDICALLY STABLE TO DISCHARGE TO [facility] THIS DAY. PT AND DTR ARE AWARE AND AGREEABLE. CHART COPY ORDERED. ORDERS ARE TO BE FAXED. REPORT TO BE CALLED TO . [facility] TRANSPORT ARRANGED FOR 1700. NO OTHER CM INTERVENTION INDICATED AT THIS TIME. CASE CLOSED.
--- NOTE | 2019-01-24 15:39 | NUR ---
VASCULAR ACCESS ROUNDS- PICC LINE APPROPRIATE, TPN INFUSING
[2019-01-24 17:27] VITALS: BP 119/62
--- NOTE | 2019-01-24 18:28 | NUR ---
PT STABLE THROUGHOUT SHIFT. PT DISCHARGED TO [facility]. REPORT CALLED TO RIYA. PT LEFT VIA [facility].
--- NOTE | 2019-01-25 17:19 | P ---
[facility] [place] [address] PROCEDURE REPORT Name: TORREY GARAY Room #: 454-P [facility] IN M.R.#: [id number] Admission: 01/09/19 ������������������ Attend Phys: Judy Mckeon Discharge: 01/24/19 ������������������ Date of : 35 Report #: [id number] THIS REPORT FOR: //name// CC: Reinaldo Gore MD DATE OF SERVICE: 01/20/2019 PROCEDURE: Colonoscopy with biopsies. PATIENT OF: Dr. Reinaldo Gore and Dr. Bonilla Gore. INDICATION FOR PROCEDURE: This patient has had C. diff colitis, refractory to appropriate therapy consisting of vancomycin 500 mg q. 6 hours for the past 10 days. We need to rule out other etiologies of colitis that may co-exist with the C. diff. Informed consent for this procedure was obtained prior to the administration of any medication. The risks of the procedure, which include bleeding, perforation, infection, complications of sedation and the possibility I could miss something have been explained to the patient and she has indicated her consent by signing. Consent was also obtained from her power of criminal defense attorney. Anesthesia kindly provided sedation for the patient for this procedure. Digital rectal was performed and I could palpate no abnormalities. Then, the Olympus colonoscope was introduced through the anal sphincter and advanced under direct visualization to the cecum. I was unable to cannulate the ileocecal valve. Findings were noted on withdrawal of the scope. Throughout the entire colon, there are yellow, heaped-up volcano-appearing lesions that are consistent with Clostridium difficile colitis. There are also varying points of red blood oozing from focal spots in the colon randomly. The ooze is intermittent and not continuous, but suggests some other type of colitis, as C. diff is usually not associated with bleeding from the colon. We found these yellow volcanic-appearing lesions in the cecum, which is identified by the appendiceal orifice. Pictures were taken in the ascending colon and biopsies were obtained from the ascending colonic mucosa for histopathology to rule out other possible causes of colitis. Hepatic flexure, yellow volcanic lesions consistent with C. diff are noted in the hepatic flexure as well as the transverse colon and random biopsies were obtained from the transverse colon for histopathology to see if there is something else besides the C. difficile infection that is causing this appearance of the colonic mucosa. [address] [address] PROCEDURE REPORT Name: GARAYTORREY Room #: 454-P [facility] IN .R.#: [id number] Admission: 01/09/19 ������������������ Attend Phys: Judy Mckeon Discharge: 01/24/19 ������������������ Date of : 35 Report #: [id number] [id number], yellow volcanic-appearing lesions are present. Descending colon, yellow volcanic lesions are present. Sigmoid colon, yellow volcanic-appearing lesions are present. There are also several uncomplicated diverticula in the sigmoid colon. Rectum, minor ulcerations are noted in the rectum. There are some yellow volcanic lesions seen in the rectum as well. I tried to suction as much of the debris out of the rectum as I could so I could see well and retroflex view did not reveal any other abnormalities. The scope was withdrawn. The patient went to the recovery area in stable condition. She tolerated the procedure well. Intermittent oozing of blood at point intervals throughout the colon as well as changes in the mucosa suggest that there may be some other underlying colitis in this area besides the C. diff. Random biopsies have been obtained from the ascending, the transverse and the descending colon for histopathology. Good hemostasis was noted after all the biopsies. The scope was withdrawn. The patient went to the recovery area in stable condition. She tolerated the procedure well. IMPRESSION: 1. Pancolonic Clostridium difficile colitis suspected. 2. Inflammatory colitis is also suspected. RECOMMENDATIONS: To await the biopsy results. Continue the vancomycin for now. I would also recommend proceeding with fecal transplantation in this patient as she has been treated for 10 days with vancomycin 500 mg q.6h. p.o. and her colon looks like it has not been treated yet. Thank very much once again for allowing me to participate in her care. ��������������������������������������������� <ELECTRONICALLY SIGNED> ���������������������������������������� By: Lucia Carpenter DO ��������������������������������������������� 01/25/19 1719 [id number] Lucia Carpenter DO /nt
== END 2019-01-24 18:29 | DRG 371 ==
LOC: ER 12:04 → EROBS 14:51 → 4W 14:51
PROVIDERS: Emergency Medicine; Internal Medicine; Internal Medicine Gastroenterology; Internal Medicine Geriatric Medicine; Specialist; ADMIT Internal Medicine
DX: A04.71 Enterocolitis due to Clostridium difficile, recurrent (principal); E43 Unspecified severe protein-calorie malnutrition; J96.22 Acute and chronic respiratory failure with hypercapnia; N17.9 Acute kidney failure, unspecified; E87.2 Acidosis; J84.9 Interstitial pulmonary disease, unspecified; J90 Pleural effusion, not elsewhere classified; G93.40 Encephalopathy, unspecified; R65.10 Systemic inflammatory response syndrome (SIRS) of non-infectious origin without acute organ dysfunction; D72.823 Leukemoid reaction; K57.30 Diverticulosis of large intestine without perforation or abscess without bleeding; J44.9 Chronic obstructive pulmonary disease, unspecified; G25.3 Myoclonus; M06.9 Rheumatoid arthritis, unspecified; M19.90 Unspecified osteoarthritis, unspecified site; K21.9 Gastro-esophageal reflux disease without esophagitis; N18.9 Chronic kidney disease, unspecified; E87.6 Hypokalemia; M81.0 Age-related osteoporosis without current pathological fracture; F32.9 Major depressive disorder, single episode, unspecified; Z87.891 Personal history of nicotine dependence; Z98.891 History of uterine scar from previous surgery; Z99.81 Dependence on supplemental oxygen; Z79.899 Other long term (current) drug therapy; Z88.2 Allergy status to sulfonamides; Z91.013 Allergy to seafood
CPT/HCPCS: 10045; 27000; 62110; 62900; 70005